=== PATIENT | female | born 1955 | race Caucasian/White ===

== ENCOUNTER 2016-09-12 17:57 | Emergency (ER) | payer MEDICARE, OTHER ==
--- NOTE | 2016-09-12 18:30 | Emergency Department Record ---
History of Present Illness - General Chief complaint: Weakness Stated complaint: BP HIGH Time Seen by Provider: 09/12/16 18:24 Source: Patient Mode of Arrival: Ambulatory - History of Present Illness Initial comments: The patient states that she had her GB removed 1 week ago in [place] on . She states she did not have a stress test or heart workup prior to her surgery other than an EKG and blood work which she was told was normal. It was found that her blood pressure was high and so she was started on amylodipine , the first pill of which she took just prior to arrival here. Around 12 noon today after putting wood into the wood stove, she developed pain between her shoulder blades in the back, which comes through to the front as an "ache." These symptoms are associated with lightheadedness, a feeling of impending fainting, nausea, ad slight diaphoresis. She has had 3 of these episodes since her surgery, and two of these episodes PRIOR to her surgery. She denies AK, PE, CVA, DM, htn, chol elevation, or FH of AK. Her mother lived into her 90's and had CHF. Sister has some unknown heart problem. She has never been a smoker. MD Complaint: Generalized weakness Onset/Timin -: Hour(s) Location: Other Severity: Moderate Severity scale (1-10): 5 Quality: Aching Consistency: Constant Improves with: None Worsens with: Movement Associated Symptoms: Denies other symptoms - [place] Coma Scale Eye Response: (4) Open spontaneously Motor Response: (6) Obeys commands Verbal Response: (5) Oriented [place] Total: 15 - Related Data Home Medications Medication Instructions Recorded Confirmed Last Taken Naproxen [Naprosyn] 500 mg PO Q12H PRN 07/07/16 07/07/16 Unknown Albuterol Sulfate [Proair Hfa] 1 - 2 puff IH .EVERY 4-6 HOURS PRN 07/08/1607/08 Unknown Aspirin/Acetaminophen/Caffeine 1 each PO PRN 07/08/16 Unknown [Excedrin Migraine Caplet] Amlodipine Besylate 5 mg PO 09/12/16 Unknown Previous Rx's Medication Instructions Recorded Fluticasone Propionate [Flonase] 0.27 gm NA DAILY #1 btl 07/09/16 Allergies Allergy/AdvReac Type Severity Reaction Status Date / Time hydromorphone Allergy Unknown RAPID Verified 09/12/16 18:24 HEART RATE levofloxacin Allergy Unknown HIVES Verified 09/12/16 18:24 Sulfa (Sulfonamide Allergy Unknown RAPID Verified 09/12/16 18:24 Antibiotics) HEART RATE Iodinated Contrast Media - Allergy RASH Verified 09/12/16 18:24 Oral and iodine Allergy RASH Verified 09/12/16 18:24 Travel Screening - Travel/Exposure Within Last 30 Days Have you traveled within the last 30 days?: No - Travel/Exposure Within Last Year Have you traveled outside the [place] in the last year?: No - Travel Symptoms Symptom Screening: None Review of Systems Reviewed: No additional complaints except as noted below Constitutional: Reports: As per HPI. Denies: Chills, Fever, Malaise, Night sweats, Weakness, Weight change Eyes: Reports: As per HPI. Denies: Eye discharge, Eye pain, Photophobia, Vision change ENT: Reports: As per HPI. Denies: Congestion, Dental pain, Ear pain, Epistaxis , Hearing loss, Throat pain Respiratory: Reports: As per HPI. Denies: Cough, Dyspnea, Hemoptysis, Stridor, Wheezes Cardiovascular: Reports: As per HPI. Denies: Arrhythmia, Chest pain, Dyspnea on exertion, Edema, Murmurs, Orthopnea, Palpitations, Paroxysmal nocturnal dyspnea, Rheumatic Fever, Syncope Endocrine: Reports: As per HPI. Denies: Fatigue, Heat or cold intolerance, Polydipsia, Polyuria Gastrointestinal: Reports: As per HPI. Denies: Abdominal pain, Constipation, Diarrhea, Hematemesis, Hematochezia, Melena, Nausea, Vomiting Genitourinary: Reports: As per HPI. Denies: Abnormal menses, Discharge, Dyspareunia, Dysuria, Frequency, Hematuria, Incontinence, Retention, Urgency Musculoskeletal: Reports: As per HPI. Denies: Arthralgia, Back pain, Gout, Joint swelling, Myalgia, Neck pain Skin: Reports: As per HPI. Denies: Bruising, Change in color, Change in hair/ nails, Lesions, Pruritus, Rash Neurological: Reports: As per HPI. Denies: Abnormal gait, Confusion, Headache, Numbness, Paresthesias, Seizure, Tingling, Tremors, Vertigo, Weakness Psychiatric: Reports: As per HPI. Denies: Anxiety, Auditory hallucinations, Depression, Homicidal thoughts, Suicidal thoughts, Visual hallucinations Hematological/Lymphatic: Reports: As per HPI. Denies: Anemia, Blood Clots, Easy bleeding, Easy bruising, Swollen glands Past Medical History - SOCIAL HISTORY Smoking Status: Never smoker Alcohol Use: None Drug Use: None - RESPIRATORY Hx Respiratory Disorders: Yes Hx Asthma: Yes Hx Bronchitis: Yes - CARDIOVASCULAR Hx Cardio Disorders: No - NEURO Hx Neuro Disorders: Yes Hx Headaches: Yes (migraines) Comment:: migraines - GI Hx GI Disorders: Yes Hx Celiac Disease: Yes Hx Reflux: Yes - Hx Genitourinary Disorders: No - ENDOCRINE Hx Endocrine Disorders: No - MUSCULOSKELETAL Hx Musculoskeletal Disorders: Yes Hx Arthritis: Yes (rheumatoid) Hx Gout: Yes Comment:: Polymyalgia Rheumatica - PSYCH Hx Psych Problems: No - HEMATOLOGY/ONCOLOGY Hx Hematology/Oncology Disorders: No Family Medical History Any Significant Family History?: Yes Hx Alcohol Use: Father Hx Cancer: Father Hx Dementia: Mother Hx Heart Disease: Mother, Brother/Sister Hx HTN: Brother/Sister Hx Stroke: Mother Physical Exam - General General Appearance: Alert, Oriented x3, Cooperative, No acute distress - Head Head exam: Normal inspection - Eye Eye exam: Normal appearance, PERRL Pupils: Normal accommodation - ENT ENT exam: Normal exam, Mucous membranes moist, Normal external ear exam, Normal orophraynx, TM's normal bilaterally Ear exam: Normal external inspection. negative: External canal tenderness Nasal Exam: Normal inspection. negative: Discharge, Sinus tenderness Mouth exam: Normal external inspection, Tongue normal Teeth exam: Normal inspection. negative: Dental caries Throat exam: Normal inspection. negative: Tonsillar erythema, Tonsillar exudate - Neck Neck exam: Normal inspection, Full ROM. negative: Tenderness - Respiratory Respiratory exam: Normal lung sounds bilaterally, Other (no skin lesions.). negative: Chest wall tenderness, Respiratory distress - Cardiovascular Cardiovascular Exam: Regular rate, Normal rhythm, Normal heart sounds - GI/Abdominal GI/Abdominal exam: Soft, Normal bowel sounds, Other (incisions clean and dry and healing well). negative: Tenderness - Rectal Rectal exam: Deferred - exam: Deferred - Extremities Extremities exam: Normal inspection, Full ROM, Normal capillary refill. negative: Calf tenderness, Pedal edema, Tenderness - Back Back exam: Reports: Normal inspection, Full ROM. Denies: Muscle spasm, Rash noted, Tenderness - Neurological Neurological exam: Alert, Normal gait, Oriented X3, Reflexes normal - Psychiatric Psychiatric exam: Normal affect, Normal mood - Skin Skin exam: Dry, Intact, Normal color, Warm Course Vital Signs 09/12/16 18:15 Temperature 98.3 F Pulse Rate 71 Respiratory 16 Rate Blood Pressure 149/80 Pulse Ox 100 - Reevaluation(s) Reevaluation #1: Patient is comfortable currently and desires no medication. Her results were discussed with the patient and her . With her elevated D dimer and recent surgery, a transfer is required for possible VQ scan/other studies to evaluate possible PE/aorta problem. Her CXR has a normal mediastinum width. Her BP's both arms are nearly identical. She also has not had a cardiac workup. Patient is in agreement with [facility] for her transfer. 09/12/16 21:12 09/12/16 21:43 Reevaluation #2: spoke with Int. Medicine at [facility] Dr. Mendoza who requests patient get her studies in the EDept at [facility] and he will admit her if indicated after her workup is finished. Patient understands and agrees. Spoke with Dr. Sosa in Emergency department who accepts patient in transfer. 09/12/16 21:32 Reevaluation #3: Patient understands transfer to EDept. and agrees. She has a very mild low grade discomfort between her shoulder blades. Morphine ordered. 09/12/16 21:39 Medical Decision Making - Management Options MDM Management: Additional Work-up Planned (e.g. ADM/Transfer/OP Study) ( Transfer to [facility] for further studies not available here.) - Data Complexity MDM Data: Labs Ordered and/or Reviewed, X-Ray Ordered and/or Reviewed (CXR two view: Negative per radiologist.), EKG Ordered and/or Reviewed - Lab Data Result diagrams: 09/12/16 18:38 09/12/16 18:38 - EKG Data -: EKG Interpreted by Me EKG: No Acute Changes, Unchanged From Previous Disposition Disposition: Transfer Clinical Impression: Elevated d-dimer Chest pain Qualifiers: Chest pain type: unspecified Qualified Code(s): R07.9 - Chest pain, unspecified Disposition: Acute Care Hospital Transfer Transfer To: [facility] emergency department Reason For Transfer: studies not available here; elevated D dimer, contrast allergy Accepting Physician: Dr. Sosa Time Discussed w/Accepting Physician: 21:41 Condition: (1) Good Forms: Patient Portal Access
[2016-09-12 18:45] LABS: BASO % 1.3 % (0-6); EOS % 5.3 % (0-6); GRAN % 46.6 % (47-80); HEMOGLOBIN 12.8 gm/dl (11.6-16.0); LYMPH % 34.9 % (16-45); MEAN CELL VOLUME 90.5 fl (81-97); MEAN CORPUSCULAR HEMOGLOBIN 28.3 pg (27-33); MEAN CORPUSCULAR HGB CONC 31.2 g/dl (32-36); MEAN PLATELET VOLUME 10.3 fl (7.4-10.4); MONO % 11.9 % (0-9); PLATELET COUNT 266 K/uL (130-400); RED BLOOD COUNT 4.53 M/uL (3.80-5.40); RED CELL DISTRIBUTION WIDTH 13.2 % (11.5-14.5); WHITE BLOOD COUNT W/O DIFF 7.2 K/uL (4.2-12.2)
[2016-09-12 18:57] LABS: BLOOD UREA NITROGEN 15 mg/dL (7-17); CREATINE PHOSPHOKINASE 36 U/L (30-135); CREATININE 0.8 mg/dL (0.52-1.04); EST GLOMERULAR FILTRATION RATE > 60 ml/min; GLUCOSE,RANDOM 97 mg/dL (70-110)
[2016-09-12 19:01] LABS: INR 1.02; PARTIAL THROMBOPLASTIN TIME 25.7 SECONDS (24.5-39.1); PROTHROMBIN TIME (PATIENT) 11.5 SECONDS (9.5-12.1)
[2016-09-12 19:03] LABS: D-DIMER 2.24 mg/L FEU (0-0.59)
[2016-09-12 19:09] LABS: CKMB 0.4 ug/L (0-6)
[2016-09-12 19:10] LABS: TROPONIN I < 0.012 ng/mL (0.00-0.034)
[2016-09-12] MEDS ORDERED: ASPIRIN 325 MG TAB ENTERIC-COATED PO ONE (19:13)
[2016-09-12] MEDS ORDERED: AL HYDROX/MAG HYDROX 30ML UD PO ONE (19:14)
[2016-09-12] MEDS ORDERED: MORPHINE SULFATE 5 MG/ML PFS IVP ONE (21:38)
[2016-09-12] MEDS ORDERED: ONDANSETRON HCL IV 4 MG/2 ML VIAL IVP ONE (21:59)
== END 2016-09-12 22:21 | disposition short-term general hospital (02) ==
LOC: ER 17:57
DX: R07.9 Chest pain, unspecified (principal); R53.1 Weakness; R79.89 Other specified abnormal findings of blood chemistry
CPT/HCPCS: 99285 ×2; 96374; 96375; 82550; 85025; 85730; 85610; 82553; 84484; 80048; 85379; 71020; 93005; 93010; J2405; J2270

== ENCOUNTER 2016-12-29 02:19 | Emergency (ER) | payer MEDICARE, OTHER ==
[2016-12-29] MEDS ORDERED: ASPIRIN 81 MG CHEWABLE TABLET PO ONE (02:46)
[2016-12-29] MEDS ORDERED: ONDANSETRON HCL IV 4 MG/2 ML VIAL IVP ONE (02:46)
[2016-12-29] MEDS ORDERED: NITROGLYCERIN 0.4MG SL TABLET #25 BTL SL ONE (02:47)
--- NOTE | 2016-12-29 02:54 | Emergency Department Record ---
History of Present Illness - General Chief complaint: General Stated complaint: HIGH BP Time Seen by Provider: 12/29/16 02:34 Source: Patient Mode of Arrival: Ambulatory - History of Present Illness Initial comments: The patient states that she was outside in the yard doing work all day. Around 10 p.m. she began feeling "sluggish," was unable to go to sleep, and felt "hyper " and nauseated. She knew that her BP was elevated. Around 1 a.m. her left jaw and top of her left shoulder began aching and she became slightly SOB without diaphoresis. When questioned she admits her chest feels tight, "like a band across the front," although she does have this with her asthma, "this feels different." She tried an erica-seltzer which didn't help so she came here to be checked. She has htn, no DM, chol elevation, or NH/PE history. She is a nonsmoker. She states her mother has CHF and her sister has some heart problem also. She has a history of elevated liver enzymes, elevated D Dimer, htn, atypical chest pain, and "blood pressure spikes." She has been on 5 mg amlodipine which she takes in the mornings for about the past 6 months. - Related Data Home Medications Medication Instructions Recorded Confirmed Last Taken Naproxen [Naprosyn] 500 mg PO Q12H PRN 07/07/16 07/07/16 Unknown Albuterol Sulfate [Proair Hfa] 1 - 2 puff IH .EVERY 4-6 HOURS PRN 07/08/1607/08 Unknown Aspirin/Acetaminophen/Caffeine 1 each PO PRN 07/08/16 Unknown [Excedrin Migraine Caplet] Amlodipine Besylate 10 mg PO DAILY 09/12/16 12/29/16 12/28/16 Previous Rx's Medication Instructions Recorded Fluticasone Propionate [Flonase] 0.27 gm NA DAILY #1 btl 07/09/16 Allergies Allergy/AdvReac Type Severity Reaction Status Date / Time hydromorphone Allergy Unknown RAPID Verified 09/12/16 18:24 HEART RATE levofloxacin Allergy Unknown HIVES Verified 09/12/16 18:24 Sulfa (Sulfonamide Allergy Unknown RAPID Verified 09/12/16 18:24 Antibiotics) HEART RATE Iodinated Contrast- Oral and Allergy RASH Verified 09/12/16 18:24 IV Dye [Iodinated Contrast Media - Oral and] iodine Allergy RASH Verified 09/12/16 18:24 Travel Screening - Travel/Exposure Within Last 30 Days Have you traveled within the last 30 days?: No - Travel Symptoms Symptom Screening: None Review of Systems Reviewed: No additional complaints except as noted below Constitutional: Reports: As per HPI. Denies: Chills, Fever, Malaise, Night sweats, Weakness, Weight change Eyes: Reports: As per HPI. Denies: Eye discharge, Eye pain, Photophobia, Vision change ENT: Reports: As per HPI. Denies: Congestion, Dental pain, Ear pain, Epistaxis , Hearing loss, Throat pain Respiratory: Reports: As per HPI. Denies: Cough, Dyspnea, Hemoptysis, Stridor, Wheezes Cardiovascular: Reports: As per HPI. Denies: Arrhythmia, Chest pain, Dyspnea on exertion, Edema, Murmurs, Orthopnea, Palpitations, Paroxysmal nocturnal dyspnea, Rheumatic Fever, Syncope Endocrine: Reports: As per HPI. Denies: Fatigue, Heat or cold intolerance, Polydipsia, Polyuria Gastrointestinal: Reports: As per HPI. Denies: Abdominal pain, Constipation, Diarrhea, Hematemesis, Hematochezia, Melena, Nausea, Vomiting Genitourinary: Reports: As per HPI. Denies: Abnormal menses, Discharge, Dyspareunia, Dysuria, Frequency, Hematuria, Incontinence, Retention, Urgency Musculoskeletal: Reports: As per HPI. Denies: Arthralgia, Back pain, Gout, Joint swelling, Myalgia, Neck pain Skin: Reports: As per HPI. Denies: Bruising, Change in color, Change in hair/ nails, Lesions, Pruritus, Rash Neurological: Reports: As per HPI. Denies: Abnormal gait, Confusion, Headache, Numbness, Paresthesias, Seizure, Tingling, Tremors, Vertigo, Weakness Psychiatric: Reports: As per HPI. Denies: Anxiety, Auditory hallucinations, Depression, Homicidal thoughts, Suicidal thoughts, Visual hallucinations Hematological/Lymphatic: Reports: As per HPI. Denies: Anemia, Blood Clots, Easy bleeding, Easy bruising, Swollen glands Past Medical History - SOCIAL HISTORY Smoking Status: Never smoker - RESPIRATORY Hx Respiratory Disorders: Yes Hx Asthma: Yes Hx Bronchitis: Yes - CARDIOVASCULAR Hx Cardio Disorders: Yes Hx Hypertension: Yes - NEURO Hx Neuro Disorders: Yes Hx Headaches: Yes (migraines) Comment:: migraines - GI Hx GI Disorders: Yes Hx Celiac Disease: Yes Hx Reflux: Yes - Hx Genitourinary Disorders: No - ENDOCRINE Hx Endocrine Disorders: No - MUSCULOSKELETAL Hx Musculoskeletal Disorders: Yes Hx Arthritis: Yes (rheumatoid) Hx Gout: Yes Comment:: Polymyalgia Rheumatica - PSYCH Hx Psych Problems: No - HEMATOLOGY/ONCOLOGY Hx Hematology/Oncology Disorders: No Family Medical History Any Significant Family History?: Yes Hx Alcohol Use: Father Hx Cancer: Father Hx Dementia: Mother Hx Heart Disease: Mother, Brother/Sister Hx HTN: Brother/Sister Hx Stroke: Mother Physical Exam - General General Appearance: Alert, Oriented x3, Cooperative, Mild distress, Other (obese , sunburned reddened face) - Head Head exam: Normal inspection - Eye Eye exam: Normal appearance, PERRL Pupils: Normal accommodation - ENT ENT exam: Normal exam, Mucous membranes moist, Normal external ear exam, Normal orophraynx, TM's normal bilaterally Ear exam: Normal external inspection. negative: External canal tenderness Nasal Exam: Normal inspection. negative: Discharge, Sinus tenderness Mouth exam: Normal external inspection, Tongue normal Teeth exam: Normal inspection. negative: Dental caries Throat exam: Normal inspection. negative: Tonsillar erythema, Tonsillar exudate - Neck Neck exam: Normal inspection, Full ROM. negative: Tenderness - Respiratory Respiratory exam: Normal lung sounds bilaterally. negative: Respiratory distress - Cardiovascular Cardiovascular Exam: Regular rate, Normal rhythm, Normal heart sounds - GI/Abdominal GI/Abdominal exam: Soft, Normal bowel sounds, Tenderness (epigastric tenderness on palpation) - Rectal Rectal exam: Deferred - exam: Deferred - Extremities Extremities exam: Normal inspection, Full ROM, Normal capillary refill, Pedal edema (trace bilateral), Tenderness (bilateral old surgical scars from total knee replacements; tender left proximal khanna at distal surgical scar). negative : Calf tenderness - Back Back exam: Reports: Normal inspection, Full ROM. Denies: Muscle spasm, Rash noted, Tenderness - Neurological Neurological exam: Alert, Normal gait, Oriented X3, Reflexes normal - Psychiatric Psychiatric exam: Anxious (mildly), Normal affect, Normal mood - Skin Skin exam: Dry, Intact, Normal color, Warm Course Vital Signs 12/29/16 02:33 Temperature 98.7 F Pulse Rate [ 83 Bilateral] Respiratory 18 Rate Blood Pressure 162/81 [Left Arm] Pulse Ox 99 - Reevaluation(s) Reevaluation #1: Her jaw/shoulder pain has improved from an 8 to a 6/10; nausea has improved; repeat BP 136/63. 12/29/16 03:05 Reevaluation #2: Her jaw discomfort is completely gone. Xrays ordered. She hurt her left knee about a week ago and requests an xray as it still bothers her. She has had bilater knee replacements. 12/29/16 03:11 Reevaluation #3: Dw Dr. Lafleur emergency attending at [facility] who accepts patient in transfer for a VQ scan. Patient and are aware and are in agreement. 12/29/16 04:01 Reevaluation #4: Patient remains without symptoms and is feeling much better. Awaiting transfer. 12/29/16 04:10 Medical Decision Making - Management Options MDM Management: Additional Work-up Planned (e.g. ADM/Transfer/OP Study) ( Transfer to [facility] EDept for VQ scan) - Data Complexity MDM Data: Labs Ordered and/or Reviewed, X-Ray Ordered and/or Reviewed (CXR Neg per ED physician. Left knee: Neg for acute abnormality per ED physician.), EKG Ordered and/or Reviewed - Lab Data Result diagrams: 12/29/16 02:25 12/29/16 02:25 - EKG Data -: EKG Interpreted by Me EKG: No Acute Changes, Unchanged From Previous (prior of 3 unchanged) Disposition Disposition: Transfer Clinical Impression: Chest pain radiating to jaw, Elevated d-dimer, Elevated TSH, Liver enzyme elevation High blood pressure Qualifiers: Hypertension type: essential hypertension Qualified Code(s): I10 - Essential ( primary) hypertension Disposition: Acute Care Hospital Transfer Transfer To: [facility] Emergency Department Reason For Transfer: VQ scan/ iodine allergy Accepting Physician: Dr. Lafleur Time Discussed w/Accepting Physician: 04:09 Condition: (1) Good Forms: Patient Portal Access
[2016-12-29 02:55] LABS: BASO % 0.8 % (0-6); EOS % 2.4 % (0-6); GRAN % 47.8 % (47-80); HEMATOCRIT 38.2 % (35.0-47.0); HEMOGLOBIN 12.7 gm/dl (11.6-16.0); LYMPH % 36.7 % (16-45); MEAN CELL VOLUME 91.2 fl (81-97); MEAN CORPUSCULAR HEMOGLOBIN 30.3 pg (27-33); MEAN CORPUSCULAR HGB CONC 33.2 g/dl (32-36); MONO % 12.3 % (0-9); PLATELET COUNT 268 K/uL (130-400); RED BLOOD COUNT 4.19 M/uL (3.80-5.40); RED CELL DISTRIBUTION WIDTH 13.6 % (11.5-14.5); WHITE BLOOD COUNT W/O DIFF 7.8 K/uL (4.2-12.2)
[2016-12-29 03:06] LABS: ALBUMIN 3.7 gm/dL (3.5-5.0); BILIRUBIN,TOTAL 0.95 mg/dL (0.2-1.3); TOTAL PROTEIN 10.8 gm/dL (6.3-8.2)
[2016-12-29 03:07] LABS: ANION GAP 4.3 (7-16); BLOOD UREA NITROGEN 20 mg/dL (7-17); CARBON DIOXIDE 27.7 mmol/L (22-30); CREATININE 0.8 mg/dL (0.52-1.04); EST GLOMERULAR FILTRATION RATE > 60 ml/min; GLUCOSE,RANDOM 98 mg/dL (70-110)
[2016-12-29 03:10] LABS: INR 1.04; PARTIAL THROMBOPLASTIN TIME 26.6 SECONDS (24.5-39.1); PROTHROMBIN TIME (PATIENT) 11.7 SECONDS (9.5-12.1)
[2016-12-29 03:11] LABS: D-DIMER 0.95 mg/L FEU (0-0.59)
[2016-12-29 03:19] LABS: CKMB 0.9 ug/L (0-6)
[2016-12-29 03:22] LABS: TROPONIN I < 0.012 ng/mL (0.00-0.034)
[2016-12-29 03:37] LABS: THYROID STIMULATING HORMONE 7.05 uIU/ml (0.465-4.68)
--- NOTE | 2016-12-29 13:40 | RADIOLOGY REPORT ---
EXAM: CHEST, TWO VIEWS HISTORY: NAUSEA AND SHORTNESS OF BREATH. LEFT JAW PAIN. HYPERTENSION. TECHNIQUE: Upright PA and lateral views of the chest were obtained. Comparison: Two view chest radiographic examination dated 09/12/16. FINDINGS: The cardiomediastinal silhouette is normal in size and configuration. The pulmonary vasculature is nondilated. The lungs and pleural spaces remain clear. Post surgical changes are again noted within the right shoulder girdle. There are mild degenerative changes of the visualized spine and each shoulder girdle. IMPRESSION: NO RADIOGRAPHIC EVIDENCE OF ACUTE CARDIOPULMONARY DISEASE WITHOUT CHANGE SINCE . JOB NUMBER: [id number] [facility]
--- NOTE | 2016-12-29 13:47 | RADIOLOGY REPORT ---
EXAM: LEFT KNEE, FOUR VIEWS HISTORY: PAIN IN PROXIMAL TIBIA AND FIBULA ONE WEEK POST FALL. TECHNIQUE: AP, oblique, lateral, and sunrise views of the left knee were obtained. Comparison: None. FINDINGS: There are changes of total knee arthroplasty with the metallic prosthetic components appearing well seated. No complicating fracture or dislocation is seen. No definite joint effusion. There is possible mild prepatellar soft tissue swelling. On the lateral view there is a well corticated ossific structure projecting near the posterior joint line measuring 5 mm. A loose body would be difficult to exclude. An additional ossific density posteriorly though more superiorly is likely a fabella. IMPRESSION: NO ACUTE FRACTURE NOR DISLOCATION. POST LEFT TOTAL KNEE ARTHROPLASTY CHANGES WITHOUT COMPLICATING FRACTURE OR DISLOCATION. POSSIBLE SMALL LOOSE BODY NEAR THE POSTERIOR JOINT LINE. JOB [facility]BER: [id number] [facility]
== END 2016-12-29 04:49 | disposition short-term general hospital (02) ==
LOC: ER 02:19
DX: R07.89 Other chest pain (principal); R79.89 Other specified abnormal findings of blood chemistry; R74.8 Abnormal levels of other serum enzymes; I10 Essential (primary) hypertension; R11.0 Nausea; E07.89 Other specified disorders of thyroid; R10.13 Epigastric pain; R06.02 Shortness of breath; M25.562 Pain in left knee
CPT/HCPCS: 99285 ×2; 96374; 85025; 85730; 85610; 80076; 82553; 84484; 80048; 84443; 85379; 83880; 71020; 73564; 93005; 93010; J2405

== ENCOUNTER 2017-05-01 10:16 | Emergency (ER) | payer MEDICARE, OTHER ==
--- NOTE | 2017-05-01 10:44 | Emergency Department Record ---
History of Present Illness - General Chief complaint: Rash Stated complaint: RASH Time Seen by Provider: 05/01/17 10:31 Source: Patient Mode of Arrival: Ambulatory Limitations: No limitations - History of Present Illness Initial comments: The patient is here due to a very itching rash over her arms and trunk mainly for a week. She did see her PCP a week ago and was given a steroid shot but the rash is not better. She denies any new medicines, foods, skin products, pets or any poison jon exposure. The patient also denies any JOHN, fever, chills, or swelling but has had a mild ST today. complaint: Rash Onset/Timin -: Week(s) Hx Tetanus Toxoid Vaccination: Yes Year of Tetanus Vaccination: 2009 Location: Generalized Severity: Mild Severity scale (1-10): 5 Consistency: Constant Improves with: None Worsens with: None Associated symptoms: Itching - Related Data Home Medications Medication Instructions Recorded Confirmed Last Taken Cetirizine HCl [Zyrtec] 10 mg PO DAILY 05/01/17 05/01/17 1 Day Ago ~04/30/17 Previous Rx's Medication Instructions Recorded Fluticasone Propionate [Flonase] 0.27 gm NA DAILY #1 btl 07/09/16 Methylprednisolone [Medrol Dose 4 mg PO DAILY #1 tab.ds.pk 05/01/17 Pack] Allergies Allergy/AdvReac Type Severity Reaction Status Date / Time hydromorphone Allergy Unknown RAPID Verified 05/01/17 10:29 HEART RATE levofloxacin Allergy Unknown HIVES Verified 05/01/17 10:29 Sulfa (Sulfonamide Allergy Unknown RAPID Verified 05/01/17 10:29 Antibiotics) HEART RATE Iodinated Contrast- Oral and Allergy RASH Verified 05/01/17 10:29 IV Dye [Iodinated Contrast Media - Oral and] iodine Allergy RASH Verified 05/01/17 10:29 Travel Screening - Travel/Exposure Within Last 30 Days Have you traveled within the last 30 days?: No - Travel/Exposure Within Last Year Have you traveled outside the [place] in the last year?: No - Additonal Travel Details Have you been exposed to anyone with a communicable illness?: No - Travel Symptoms Symptom Screening: None Review of Systems Constitutional: Denies: Chills, Fever Eyes: Denies: Eye discharge ENT: Denies: Congestion Respiratory: Denies: Cough, Dyspnea Past Medical History - SOCIAL HISTORY Smoking Status: Never smoker Alcohol Use: None Drug Use: None - RESPIRATORY Hx Respiratory Disorders: Yes Hx Asthma: Yes Hx Bronchitis: Yes - CARDIOVASCULAR Hx Cardio Disorders: Yes Hx Hypertension: Yes - NEURO Hx Neuro Disorders: Yes Hx Headaches: Yes (migraines) Comment:: migraines - GI Hx GI Disorders: Yes Hx Celiac Disease: Yes Hx Reflux: Yes Hx Hiatal Hernia: Yes (scope in June) - Hx Genitourinary Disorders: No - ENDOCRINE Hx Endocrine Disorders: No - MUSCULOSKELETAL Hx Musculoskeletal Disorders: Yes Hx Arthritis: Yes (rheumatoid) Hx Gout: Yes Comment:: Polymyalgia Rheumatica - PSYCH Hx Psych Problems: No - HEMATOLOGY/ONCOLOGY Hx Hematology/Oncology Disorders: No Family Medical History Any Significant Family History?: Yes Hx Alcohol Use: Father Hx Cancer: Father Hx Dementia: Mother Hx Heart Disease: Mother, Brother/Sister Hx HTN: Brother/Sister Hx Stroke: Mother Physical Exam - General General Appearance: Alert, Oriented x3, Cooperative, No acute distress - Head Head exam: Atraumatic, Normocephalic, Normal inspection - Eye Eye exam: Normal appearance, PERRL - ENT Throat exam: Normal inspection. negative: Tonsillar erythema, Tonsillar exudate - Neck Neck exam: Normal inspection, Full ROM. negative: Lymphadenopathy, Meningismus , Tenderness - Respiratory Respiratory exam: Normal lung sounds bilaterally. negative: Respiratory distress - Cardiovascular Cardiovascular Exam: Regular rate, Normal rhythm, Normal heart sounds - GI/Abdominal GI/Abdominal exam: Soft, Normal bowel sounds. negative: Tenderness - Extremities Extremities exam: Normal inspection, Full ROM, Normal capillary refill. negative: Tenderness - Skin Skin exam: Rash (There is a scattered faint blanching macular papular erythematous rash over the trunk, and arms mainly with no involvement of the palms, face or mouth.) Course Vital Signs 05/01/17 10:21 Temperature 98.0 F Pulse Rate 69 Respiratory 18 Rate Blood Pressure 142/76 Pulse Ox 99 - Reevaluation(s) Reevaluation #1: I explained to the patient that we will treat the rash with an oral steroid. She is to continue the Zyrtec and see her PCP next week as planned. 05/01/17 10:42 Disposition Disposition: Discharge Clinical Impression: Skin rash Disposition: Home, Self-Care Condition: (2) Stable Instructions: Acute Rash (ED) Additional Instructions: Please use the Medrol dose pack as directed and continue the Zyrtec. Please see your PCP next week as planned. Return to the ER for any increased rash, or any swelling, pain, fever, or trouble breathing. Prescriptions: Methylprednisolone [Medrol Dose Pack] 4 mg PO DAILY #1 tab.ds.pk Forms: Patient Portal Access Time of Disposition: 10:45 Quality - Quality Measures Quality Measures: N/A - Blood Pressure Screening View Details: Yes Does Patient Have Any of the Following: No Blood Pressure Classification: Hypertensive Reading Systolic Measurement: 142 Diastolic Measurement: 76 Screening for High Blood Pressure: < Normal BP, F/U Not Required > [G8783]
== END 2017-05-01 10:58 | disposition home or self-care (01) ==
LOC: ER 10:16
DX: R21 Rash and other nonspecific skin eruption (principal)
CPT/HCPCS: 99282

== ENCOUNTER 2017-08-08 15:30 | Emergency (ER) | payer MEDICARE, BC ==
--- NOTE | 2017-08-08 16:44 | Emergency Department Record ---
History of Present Illness - General Chief complaint: Flu Like Symptoms Stated complaint: FLU LIKE SYMPTOMS Time Seen by Provider: 08/08/17 16:36 Source: Patient, RN notes reviewed Mode of Arrival: Ambulatory - History of Present Illness Initial comments: cough congestion and bodyaches and diarrhea and vomiting Onset/Timin -: Days(s) Location: Generalized Severity: Mild Associated Symptoms: Fever/chills, Headaches, Loss of appetite, Nausea/vomiting - [place] Coma Scale Eye Response: (4) Open spontaneously Motor Response: (6) Obeys commands Verbal Response: (5) Oriented [place] Total: 15 - Related Data Previous Rx's Medication Instructions Recorded Fluticasone Propionate [Flonase] 0.27 gm NA DAILY #1 btl 07/09/16 Ondansetron HCl [Zofran] 4 mg PO Q6HR #10 tablet 08/08/17 Oseltamivir Phosphate [Tamiflu] 75 mg PO BID #10 capsule 08/08/17 Allergies Allergy/AdvReac Type Severity Reaction Status Date / Time hydromorphone Allergy Unknown RAPID Verified 08/08/17 15:55 HEART RATE levofloxacin Allergy Unknown HIVES Verified 08/08/17 15:55 Sulfa (Sulfonamide Allergy Unknown RAPID Verified 08/08/17 15:55 Antibiotics) HEART RATE Iodinated Contrast- Oral and Allergy RASH Verified 08/08/17 15:55 IV Dye [Iodinated Contrast Media - Oral and] iodine Allergy RASH Verified 08/08/17 15:55 Travel Screening - Travel/Exposure Within Last 30 Days Have you traveled within the last 30 days?: No - Travel/Exposure Within Last Year Have you traveled outside the [place] in the last year?: No - Additonal Travel Details Have you been exposed to anyone with a communicable illness?: No Review of Systems Reviewed: No additional complaints except as noted below Constitutional: Reports: As per HPI. Denies: Chills, Fever, Malaise, Night sweats, Weakness, Weight change Eyes: Reports: As per HPI. Denies: Eye discharge, Eye pain, Photophobia, Vision change ENT: Reports: As per HPI, Congestion. Denies: Dental pain, Ear pain, Epistaxis , Hearing loss, Throat pain Respiratory: Reports: As per HPI, Cough. Denies: Dyspnea, Hemoptysis, Stridor, Wheezes Cardiovascular: Reports: As per HPI. Denies: Arrhythmia, Chest pain, Dyspnea on exertion, Edema, Murmurs, Orthopnea, Palpitations, Paroxysmal nocturnal dyspnea, Rheumatic Fever, Syncope Endocrine: Reports: As per HPI. Denies: Fatigue, Heat or cold intolerance, Polydipsia, Polyuria Gastrointestinal: Reports: As per HPI, Diarrhea, Vomiting. Denies: Abdominal pain, Constipation, Hematemesis, Hematochezia, Melena, Nausea Genitourinary: Reports: As per HPI. Denies: Abnormal menses, Discharge, Dyspareunia, Dysuria, Frequency, Hematuria, Incontinence, Retention, Urgency Musculoskeletal: Reports: As per HPI. Denies: Arthralgia, Back pain, Gout, Joint swelling, Myalgia, Neck pain Skin: Reports: As per HPI. Denies: Bruising, Change in color, Change in hair/ nails, Lesions, Pruritus, Rash Neurological: Reports: As per HPI. Denies: Abnormal gait, Confusion, Headache, Numbness, Paresthesias, Seizure, Tingling, Tremors, Vertigo, Weakness Psychiatric: Reports: As per HPI. Denies: Anxiety, Auditory hallucinations, Depression, Homicidal thoughts, Suicidal thoughts, Visual hallucinations Hematological/Lymphatic: Reports: As per HPI. Denies: Anemia, Blood Clots, Easy bleeding, Easy bruising, Swollen glands Past Medical History - SOCIAL HISTORY Smoking Status: Never smoker Alcohol Use: None Drug Use: None - RESPIRATORY Hx Respiratory Disorders: Yes Hx Asthma: Yes Hx Bronchitis: Yes - CARDIOVASCULAR Hx Cardio Disorders: Yes Hx Hypertension: Yes - NEURO Hx Neuro Disorders: Yes Hx Headaches: Yes (migraines) Comment:: migraines - GI Hx GI Disorders: Yes Hx Celiac Disease: Yes Hx Reflux: Yes Hx Hiatal Hernia: Yes (scope in June) - Hx Genitourinary Disorders: No - ENDOCRINE Hx Endocrine Disorders: No - MUSCULOSKELETAL Hx Musculoskeletal Disorders: Yes Hx Arthritis: Yes (rheumatoid) Hx Gout: Yes Comment:: Polymyalgia Rheumatica - PSYCH Hx Psych Problems: No - HEMATOLOGY/ONCOLOGY Hx Hematology/Oncology Disorders: No Family Medical History Any Significant Family History?: No Hx Alcohol Use: Father Hx Cancer: Father Hx Dementia: Mother Hx Heart Disease: Mother, Brother/Sister Hx HTN: Brother/Sister Hx Stroke: Mother Physical Exam - General General Appearance: Alert, Oriented x3, Cooperative, No acute distress - Head Head exam: Normal inspection - Eye Eye exam: Normal appearance, PERRL Pupils: Normal accommodation - ENT ENT exam: Normal exam, Mucous membranes moist, Normal external ear exam, Normal orophraynx, TM's normal bilaterally Ear exam: Normal external inspection. negative: External canal tenderness Nasal Exam: Normal inspection. negative: Discharge, Sinus tenderness Mouth exam: Normal external inspection, Tongue normal Teeth exam: Normal inspection. negative: Dental caries Throat exam: Normal inspection. negative: Tonsillar erythema, Tonsillar exudate - Neck Neck exam: Normal inspection, Full ROM. negative: Tenderness - Respiratory Respiratory exam: Normal lung sounds bilaterally. negative: Respiratory distress - Cardiovascular Cardiovascular Exam: Regular rate, Normal rhythm, Normal heart sounds - GI/Abdominal GI/Abdominal exam: Soft, Normal bowel sounds. negative: Tenderness - Rectal Rectal exam: Deferred - exam: Deferred - Extremities Extremities exam: Normal inspection, Full ROM, Normal capillary refill. negative: Tenderness - Back Back exam: Reports: Normal inspection, Full ROM. Denies: Muscle spasm, Rash noted, Tenderness - Neurological Neurological exam: Alert, Normal gait, Oriented X3, Reflexes normal - Psychiatric Psychiatric exam: Normal affect, Normal mood - Skin Skin exam: Dry, Intact, Normal color, Warm Course Vital Signs 08/08/17 15:44 Temperature 99.6 F Pulse Rate 96 H Respiratory 18 Rate Blood Pressure 148/82 Pulse Ox 97 Disposition Clinical Impression: Influenza Disposition: Home, Self-Care Condition: (1) Good Instructions: Influenza (ED) Additional Instructions: follow up with primary Prescriptions: Ondansetron HCl [Zofran] 4 mg PO Q6HR #10 tablet Oseltamivir Phosphate [Tamiflu] 75 mg PO BID #10 capsule Time of Disposition: 16:44 Quality - Quality Measures Quality Measures: N/A - Blood Pressure Screening Does Patient Have Any of the Following: No Blood Pressure Classification: Pre-Hypertensive BP Reading Systolic Measurement: 148 Diastolic Measurement: 82 Screening for High Blood Pressure: < Pre-Hypertensive BP, F/U Documented > [ G8950] Pre-Hypertensive Follow-up Interventions: Referral to alternative/primary care provider.
[2017-08-08] MEDS ORDERED: ONDANSETRON 4 MG ODT TABLET SL ONE (16:51)
== END 2017-08-08 16:58 | disposition home or self-care (01) ==
LOC: ER 15:30
DX: J10.1 Influenza due to other identified influenza virus with other respiratory manifestations (principal); R51 Headache; R11.2 Nausea with vomiting, unspecified; I10 Essential (primary) hypertension
CPT/HCPCS: 99282

== ENCOUNTER 2017-08-13 03:30 | Emergency (ER) | payer OTHER, MEDICARE ==
[2017-08-13] MEDS: 0.9 % SODIUM CHLORIDE 1,000 ML BAG IV ONE (03:58)
[2017-08-13] MEDS: ONDANSETRON HCL IV 4 MG/2 ML VIAL IVP ONE (03:58)
--- NOTE | 2017-08-13 03:58 | Emergency Department Record ---
History of Present Illness - General Chief Complaint: Shortness of breath Stated Complaint: JOHN Time Seen by Provider: 08/13/17 03:43 Source: Patient Mode of Arrival: Ambulatory Limitations: No limitations - History of Present Illness Initial Comments: The patient is here due to a 6 day hx of cough and congestion. She states she was in the ER 5 days ago and was told she had Influenza due to the one day hx of cough with vomiting and diarrhea. She felt dehydrated and the next day felt like she may have passed out while in bed. The patient did see her PCP the next day which was Thursday of this week and was told she had a viral pneumonia. Now she feels like her cough has worsened and her chest is hurting any time she coughs. She believes during a coughing fit last night she may have coughed up some blood because she tasted it in her mouth but had no blood in her sputum. The patient does feel mildly dehydrated and has been persistently nauseated but has not vomited recently. The loose stools have persisted and she has had 2 of them in the last 24 hours. MD Complaint: Cough Onset/Timin -: Days(s) Severity: Mild Severity scale (1-10): 8 Consistency: Getting worse Improves With: Nothing Worsens With: Nothing Associated Symptoms: Cough, Nausea/vomiting, Syncope - Related Data Previous Rx's Medication Instructions Recorded Fluticasone Propionate [Flonase] 0.27 gm NA DAILY #1 btl 07/09/16 Ondansetron HCl [Zofran] 4 mg PO Q6HR #10 tablet 08/08/17 Oseltamivir Phosphate [Tamiflu] 75 mg PO BID #10 capsule 08/08/17 Benzonatate [Tessalon Perle] 100 mg PO TID #20 capsule 08/13/17 Doxycycline Monohydrate [Mondoxyne 100 mg PO BID #14 capsule 08/13/17 Nl] Allergies Allergy/AdvReac Type Severity Reaction Status Date / Time hydromorphone Allergy Unknown RAPID Verified 08/08/17 15:55 HEART RATE levofloxacin Allergy Unknown HIVES Verified 08/08/17 15:55 Sulfa (Sulfonamide Allergy Unknown RAPID Verified 08/08/17 15:55 Antibiotics) HEART RATE Iodinated Contrast- Oral and Allergy RASH Verified 08/08/17 15:55 IV Dye [Iodinated Contrast Media - Oral and] iodine Allergy RASH Verified 08/08/17 15:55 Travel Screening - Travel/Exposure Within Last 30 Days Have you traveled within the last 30 days?: No - Travel/Exposure Within Last Year Have you traveled outside the [place] in the last year?: No - Additonal Travel Details Have you been exposed to anyone with a communicable illness?: No - Travel Symptoms Symptom Screening: None Review of Systems Constitutional: Reports: Malaise. Denies: Chills, Fever Eyes: Denies: Eye discharge ENT: Reports: Congestion Respiratory: Reports: Cough. Denies: Dyspnea, Hemoptysis Cardiovascular: Denies: Arrhythmia Endocrine: Reports: Fatigue Gastrointestinal: Reports: Diarrhea Genitourinary: Denies: Dysuria Musculoskeletal: Denies: Arthralgia Past Medical History - SOCIAL HISTORY Smoking Status: Never smoker Alcohol Use: None Drug Use: None - RESPIRATORY Hx Respiratory Disorders: Yes Hx Asthma: Yes Hx Bronchitis: Yes - CARDIOVASCULAR Hx Cardio Disorders: Yes Hx Hypertension: Yes - NEURO Hx Neuro Disorders: Yes Hx Headaches: Yes (migraines) Comment:: migraines - GI Hx GI Disorders: Yes Hx Celiac Disease: Yes Hx Reflux: Yes Hx Hiatal Hernia: Yes (scope in June scheduled) - Hx Genitourinary Disorders: No - ENDOCRINE Hx Endocrine Disorders: No - MUSCULOSKELETAL Hx Musculoskeletal Disorders: Yes Hx Arthritis: Yes (rheumatoid) Hx Gout: Yes Comment:: Polymyalgia Rheumatica - PSYCH Hx Psych Problems: No - HEMATOLOGY/ONCOLOGY Hx Hematology/Oncology Disorders: No Family Medical History Any Significant Family History?: Yes Hx Alcohol Use: Father Hx Cancer: Father Hx Dementia: Mother Hx Heart Disease: Mother, Brother/Sister Hx HTN: Brother/Sister Hx Stroke: Mother Physical Exam - General General Appearance: Alert, Oriented x3, Cooperative, No acute distress - Head Head exam: Atraumatic, Normocephalic, Normal inspection - Eye Eye exam: Normal appearance, PERRL - ENT Throat exam: Tonsillar erythema. negative: Normal inspection, Tonsillomegaly, Tonsillar exudate - Neck Neck exam: Normal inspection, Full ROM. negative: Tenderness - Respiratory Respiratory exam: Normal lung sounds bilaterally, Chest wall tenderness (with any palpation of her anterior chest wall the pain she is experiencing is 100% reproducible.). negative: Respiratory distress - Cardiovascular Cardiovascular Exam: Regular rate, Normal rhythm, Normal heart sounds - GI/Abdominal GI/Abdominal exam: Soft, Normal bowel sounds. negative: Tenderness - Extremities Extremities exam: Normal inspection, Full ROM, Normal capillary refill. negative: Calf tenderness, Pedal edema, Tenderness - Neurological Neurological exam: Alert, Normal gait. negative: Abnormal gait, Motor sensory deficit Course Vital Signs 08/13/17 03:34 Temperature 98 F Pulse Rate [ 88 Bilateral] Respiratory 18 Rate Blood Pressure 140/86 [Left Arm] Pulse Ox 96 - Reevaluation(s) Reevaluation #1: The patient is doing well at this time. I did discuss the neg CXR and lab work with the patient. We will treat her for a bacterial bronchitis and Tessalon for cough and have her F/U with her PCP early next week if not better. 08/13/17 04:30 Medical Decision Making - Data Complexity MDM Data: Labs Ordered and/or Reviewed, X-Ray Ordered and/or Reviewed, EKG Ordered and/or Reviewed - Lab Data Result diagrams: 08/13/17 03:58 08/13/17 03:58 - EKG Data -: EKG Interpreted by De EKG: No Acute Changes, Unchanged From Previous (No change from 12/29/16.) - Radiology Data Radiology results: Report reviewed (CXR: neg definite acute infiltrate.) Disposition Disposition: Discharge Clinical Impression: URI (upper respiratory infection) Qualifiers: URI type: unspecified URI Qualified Code(s): J06.9 - Acute upper respiratory infection, unspecified Disposition: Home, Self-Care Condition: (2) Stable Instructions: Upper Respiratory Infection (ED) Additional Instructions: Please stop the Tamiflu and continue the Doxycycline as directed and the Tessalon for cough. Please see your PCP for recheck next week and return to the ER for any worsening cough, Chest pain, fever, or shortness of breath. Prescriptions: Benzonatate [Tessalon Perle] 100 mg PO TID #20 capsule Doxycycline Monohydrate [Mondoxyne Nl] 100 mg PO BID #14 capsule Forms: Patient Portal Access Time of Disposition: 04:43 Quality - Quality Measures Quality Measures: N/A - Blood Pressure Screening View Details: Yes Does Patient Have Any of the Following: No Blood Pressure Classification: Pre-Hypertensive BP Reading Systolic Measurement: 138 Diastolic Measurement: 57 Screening for High Blood Pressure: < Pre-Hypertensive BP, F/U Documented > [ G8950] Pre-Hypertensive Follow-up Interventions: Referral to alternative/primary care provider.
[2017-08-13 04:09] LABS: HEMOGLOBIN 13.1 gm/dl (11.6-16.0); MEAN CELL VOLUME 91.3 fl (81-97); MEAN CORPUSCULAR HEMOGLOBIN 29.9 pg (27-33); MEAN CORPUSCULAR HGB CONC 32.8 g/dl (32-36); MEAN PLATELET VOLUME 9.2 fl (7.4-10.4); PLATELET COUNT 271 K/uL (130-400); RED BLOOD COUNT 4.38 M/uL (3.80-5.40); RED CELL DISTRIBUTION WIDTH 12.7 % (11.5-14.5)
[2017-08-13 04:10] LABS: BLOOD UREA NITROGEN 9 mg/dL (8-23); CREATININE 0.6 mg/dL (0.5-0.9); EST GLOMERULAR FILTRATION RATE > 60 mL/min
[2017-08-13 04:11] LABS: INFLUENZA A NEGATIVE (NEGATIVE); INFLUENZA B NEGATIVE (NEGATIVE)
[2017-08-13 04:13] LABS: GLUCOSE,RANDOM 95 mg/dL (74-109)
[2017-08-13 04:16] LABS: CREATINE PHOSPHOKINASE 72 U/L (26-192)
[2017-08-13 04:18] LABS: CKMB 1.3 ng/mL (<3.77)
[2017-08-13] MEDS: DOXYCYCLINE HYCLATE 100 MG CAPSULE PO ONE (04:26)
--- NOTE | 2017-08-13 12:39 | RADIOLOGY REPORT ---
EXAM: CHEST, TWO VIEWS HISTORY: CHEST PAIN. TECHNIQUE: Frontal and lateral views of the chest were obtained. Comparison: 12/29/16 chest. FINDINGS: The heart size is normal. Atheromatous change thoracic aorta. Post surgical changes to the right shoulder. Minor scarring in the left lung base. The lungs are otherwise clear. IMPRESSION: NO ACUTE CARDIOPULMONARY PROCESS. JOB NUMBER: [id number] MTDD
== END 2017-08-13 04:45 | disposition home or self-care (01) ==
LOC: ER 03:30
DX: J06.9 Acute upper respiratory infection, unspecified (principal); R07.89 Other chest pain; R06.02 Shortness of breath; R55 Syncope and collapse; R11.2 Nausea with vomiting, unspecified; I10 Essential (primary) hypertension
CPT/HCPCS: 71046; 80048; 82550; 82553; 84484; 85027; 87400; 93005; 93010; 96361; 96374; 99284; J2405; J7030

== ENCOUNTER 2018-01-03 17:14 | Emergency (ER) | payer MEDICARE, BC ==
--- NOTE | 2018-01-03 17:57 | Emergency Department Record ---
History of Present Illness - General Chief Complaint: Ankle/Foot Injury Stated Complaint: FALL RT ANKLE SWELLING/PAIN Time Seen by Provider: 01/03/18 17:20 Source: Patient, RN notes reviewed Mode of Arrival: Wheelchair - History of Present Illness Initial Comments: fall one hour ago tripped on Dog. and her right ankle swollen and painful. right shoulder painful but FROM and no deformities Complaint: Ankle injury Onset/Timin -: Hour(s) Type of Injury: Blunt Place: Home Severity: Severe Severity scale (1-10): 8 Improves With: Nothing Worsens With: Nothing Context: Fall Treatments Prior to Arrival: Cold therapy - Related Data Previous Rx's Medication Instructions Recorded Naproxen [Naprosyn] 500 mg PO BID #20 tablet 01/03/18 Allergies Allergy/AdvReac Type Severity Reaction Status Date / Time hydromorphone Allergy Unknown RAPID Verified 01/03/18 17:28 HEART RATE levofloxacin Allergy Unknown HIVES Verified 01/03/18 17:28 Sulfa (Sulfonamide Allergy Unknown RAPID Verified 01/03/18 17:28 Antibiotics) HEART RATE Iodinated Contrast- Oral and Allergy RASH Verified 01/03/18 17:28 IV Dye [Iodinated Contrast Media - Oral and] iodine Allergy RASH Verified 01/03/18 17:28 Travel Screening - Travel/Exposure Within Last 30 Days Have you traveled within the last 30 days?: Yes Location Detail:: [place] - Travel/Exposure Within Last Year Have you traveled outside the [place] in the last year?: No - Additonal Travel Details Have you been exposed to anyone with a communicable illness?: No - Travel Symptoms Symptom Screening: None Review of Systems Reviewed: No additional complaints except as noted below Constitutional: Reports: As per HPI. Denies: Chills, Fever, Malaise, Night sweats, Weakness, Weight change Eyes: Reports: As per HPI. Denies: Eye discharge, Eye pain, Photophobia, Vision change ENT: Reports: As per HPI. Denies: Congestion, Dental pain, Ear pain, Epistaxis , Hearing loss, Throat pain Respiratory: Reports: As per HPI. Denies: Cough, Dyspnea, Hemoptysis, Stridor, Wheezes Cardiovascular: Reports: As per HPI. Denies: Arrhythmia, Chest pain, Dyspnea on exertion, Edema, Murmurs, Orthopnea, Palpitations, Paroxysmal nocturnal dyspnea, Rheumatic Fever, Syncope Endocrine: Reports: As per HPI. Denies: Fatigue, Heat or cold intolerance, Polydipsia, Polyuria Gastrointestinal: Reports: As per HPI. Denies: Abdominal pain, Constipation, Diarrhea, Hematemesis, Hematochezia, Melena, Nausea, Vomiting Genitourinary: Reports: As per HPI. Denies: Abnormal menses, Discharge, Dyspareunia, Dysuria, Frequency, Hematuria, Incontinence, Retention, Urgency Musculoskeletal: Reports: As per HPI, Other (right ankle pain). Denies: Arthralgia, Back pain, Gout, Joint swelling, Myalgia, Neck pain Skin: Reports: As per HPI. Denies: Bruising, Change in color, Change in hair/ nails, Lesions, Pruritus, Rash Neurological: Reports: As per HPI. Denies: Abnormal gait, Confusion, Headache, Numbness, Paresthesias, Seizure, Tingling, Tremors, Vertigo, Weakness Psychiatric: Reports: As per HPI. Denies: Anxiety, Auditory hallucinations, Depression, Homicidal thoughts, Suicidal thoughts, Visual hallucinations Hematological/Lymphatic: Reports: As per HPI. Denies: Anemia, Blood Clots, Easy bleeding, Easy bruising, Swollen glands Past Medical History - SOCIAL HISTORY Smoking Status: Never smoker Alcohol Use: None Drug Use: None - RESPIRATORY Hx Respiratory Disorders: Yes Hx Asthma: Yes Hx Bronchitis: Yes - CARDIOVASCULAR Hx Cardio Disorders: Yes Hx Hypertension: Yes - NEURO Hx Neuro Disorders: Yes Hx Headaches: Yes (migraines) Comment:: migraines - GI Hx GI Disorders: Yes Hx Celiac Disease: Yes Hx Reflux: Yes Hx Hiatal Hernia: Yes (scope in June) - Hx Genitourinary Disorders: No - ENDOCRINE Hx Endocrine Disorders: No - MUSCULOSKELETAL Hx Musculoskeletal Disorders: Yes Hx Arthritis: Yes (rheumatoid) Hx Gout: Yes Comment:: Polymyalgia Rheumatica - PSYCH Hx Psych Problems: No - HEMATOLOGY/ONCOLOGY Hx Hematology/Oncology Disorders: No Family Medical History Any Significant Family History?: No Hx Alcohol Use: Father Hx Cancer: Father Hx Dementia: Mother Hx Heart Disease: Mother, Brother/Sister Hx HTN: Brother/Sister Hx Stroke: Mother Physical Exam - General General Appearance: Alert, Oriented x3, Cooperative, No acute distress - Head Head exam: Normal inspection - Eye Eye exam: Normal appearance, PERRL Pupils: Normal accommodation - ENT ENT exam: Normal exam, Mucous membranes moist, Normal external ear exam, Normal orophraynx, TM's normal bilaterally Ear exam: Normal external inspection. negative: External canal tenderness Nasal Exam: Normal inspection. negative: Discharge, Sinus tenderness Mouth exam: Normal external inspection, Tongue normal Teeth exam: Normal inspection. negative: Dental caries Throat exam: Normal inspection. negative: Tonsillar erythema, Tonsillar exudate - Neck Neck exam: Normal inspection, Full ROM. negative: Tenderness - Respiratory Respiratory exam: Normal lung sounds bilaterally. negative: Respiratory distress - Cardiovascular Cardiovascular Exam: Regular rate, Normal rhythm, Normal heart sounds - GI/Abdominal GI/Abdominal exam: Soft, Normal bowel sounds. negative: Tenderness - Rectal Rectal exam: Deferred - exam: Deferred - Extremities Extremities exam: Normal inspection, Full ROM, Normal capillary refill, Tenderness (swollen and painful) - Back Back exam: Reports: Normal inspection, Full ROM. Denies: Muscle spasm, Rash noted, Tenderness - Neurological Neurological exam: Alert, Normal gait, Oriented X3, Reflexes normal - Psychiatric Psychiatric exam: Normal affect, Normal mood - Skin Skin exam: Dry, Intact, Normal color, Warm Course Vital Signs 01/03/18 17:17 Temperature 98.6 F Pulse Rate 78 Respiratory 16 Rate Blood Pressure 140/80 Pulse Ox 98 Medical Decision Making - Data Complexity MDM Data: X-Ray Ordered and/or Reviewed (negative for fractures) Disposition Clinical Impression: Ankle sprain Qualifiers: Encounter type: initial encounter Involved ligament of ankle: anterior talofibular ligament Laterality: right Qualified Code(s): S93.491A - Sprain of other ligament of right ankle, initial encounter Disposition: Home, Self-Care Condition: (1) Good Instructions: Ankle Sprain (ED) Additional Instructions: follow up with family in 4 days Prescriptions: Naproxen [Naprosyn] 500 mg PO BID #20 tablet Forms: Patient Portal Access Time of Disposition: 18:23 Quality - Quality Measures Quality Measures: N/A - Headache: Neuroimaging ICD10 Codes Entered: No - Blood Pressure Screening Does Patient Have Any of the Following: No Blood Pressure Classification: Pre-Hypertensive BP Reading Systolic Measurement: 140 Diastolic Measurement: 80 Screening for High Blood Pressure: < Pre-Hypertensive BP, F/U Documented > [ G8950] Pre-Hypertensive Follow-up Interventions: Referral to alternative/primary care provider.
[2018-01-03] MEDS ORDERED: NAPROXEN 250 MG TABLET PO ONE (18:25)
--- NOTE | 2018-01-03 23:17 | RADIOLOGY REPORT ---
EXAM: ANKLE RIGHT 3 VIEWS HISTORY: LATERAL AND POSTERIOR ANKLE PAIN AND SWELLING. FELL OVER DOG. COMPARISON: None TECHNIQUE: Right ankle, three views. FINDINGS: Mild soft tissue swelling. Bones are osteopenic. Well-corticated calcifications in the posterior ankle joint compatible with remote trauma. This includes an apparent os trigonum. Posterior and plantar calcaneal enthesophytes. There also appears to be an enthesophyte at the fifth metatarsal base. Osseous remodeling medial malleolus. No clearly acute osseous abnormality. IMPRESSION: CHRONIC-APPEARING CHANGES WITHIN THE RIGHT ANKLE. NO CONCLUSIVE ACUTE PROCESS IDENTIFIED. JOB NUMBER: [id number] MTDD
== END 2018-01-03 18:52 | disposition home or self-care (01) ==
LOC: ER 17:14
DX: S93.491A Sprain of other ligament of right ankle, initial encounter (principal); M25.511 Pain in right shoulder; I10 Essential (primary) hypertension; W18.09XA Striking against other object with subsequent fall, initial encounter; Y92.009 Unspecified place in unspecified non-institutional (private) residence as the place of occurrence of the external cause
CPT/HCPCS: 99283

== ENCOUNTER 2018-01-31 14:34 | Emergency (ER) | payer MEDICARE, BC ==
--- NOTE | 2018-01-31 16:00 | Emergency Department Record ---
History of Present Illness - General Chief Complaint: Dizziness Stated Complaint: LIGHTHEADED,NAUSEA Time Seen by Provider: 01/31/18 15:53 Source: Patient, Family Mode of Arrival: Ambulatory Limitations: No limitations - History of Present Illness Initial Comments: 63 yo female presents with about 4 days of an itchy rash that goes across the abdomen. No fever, blisters. No bruising. It is on both sides of the abdomen. It is not painful. She also has had 4 days of a spinning sensation with turning of the head. No vision changes, speech, hearing, numbness, weakness. The spinning feeling resolves if still within a few seconds. She denies any coordination issues. MD Complaint: Dizziness, Other (rash) Onset/Timin -: Days(s) Timing: Unsure Description: "Room spinning" History of Same: Yes History of Trauma: No Severity: Mild Improves With: Nothing Worsens With: Movement Associated Symptoms: Other - [place] Coma Scale Eye Response: (4) Open spontaneously Motor Response: (6) Obeys commands Verbal Response: (5) Oriented [place] Total: 15 - Related Data Previous Rx's Medication Instructions Recorded Cetirizine HCl [Zyrtec] 10 mg PO DAILY #30 cap 01/31/18 Clotrimazole 45 gm VG BID #1 cream.appl 01/31/18 Meclizine HCl [Antivert] 25 mg PO Q8H #20 tablet 01/31/18 Allergies Allergy/AdvReac Type Severity Reaction Status Date / Time hydromorphone Allergy Unknown RAPID Verified 01/03/18 17:28 HEART RATE levofloxacin Allergy Unknown HIVES Verified 01/03/18 17:28 Sulfa (Sulfonamide Allergy Unknown RAPID Verified 01/03/18 17:28 Antibiotics) HEART RATE Iodinated Contrast- Oral and Allergy RASH Verified 01/03/18 17:28 IV Dye [Iodinated Contrast Media - Oral and] iodine Allergy RASH Verified 01/03/18 17:28 Travel Screening - Travel/Exposure Within Last 30 Days Have you traveled within the last 30 days?: No Review of Systems Constitutional: Denies: Chills, Fever, Malaise, Weakness Eyes: Denies: Eye discharge, Eye pain, Photophobia, Vision change ENT: Denies: Congestion, Throat pain Respiratory: Denies: Cough, Dyspnea, Hemoptysis, Stridor, Wheezes Cardiovascular: Denies: Chest pain, Palpitations, Syncope Endocrine: Denies: Fatigue, Polydipsia, Polyuria Gastrointestinal: Denies: Abdominal pain, Diarrhea, Nausea, Vomiting Genitourinary: Denies: Dysuria, Frequency, Urgency Musculoskeletal: Denies: Arthralgia, Back pain, Joint swelling, Myalgia Skin: Reports: As per HPI, Change in color, Rash. Denies: Bruising Neurological: Reports: Vertigo. Denies: Abnormal gait, Confusion, Headache, Numbness, Paresthesias, Seizure, Tingling, Tremors, Weakness Psychiatric: Denies: Anxiety Hematological/Lymphatic: Denies: Blood Clots, Easy bleeding, Easy bruising, Swollen glands Past Medical History - SOCIAL HISTORY Smoking Status: Never smoker - RESPIRATORY Hx Respiratory Disorders: Yes Hx Asthma: Yes Hx Bronchitis: Yes - CARDIOVASCULAR Hx Cardio Disorders: Yes Hx Hypertension: Yes - NEURO Hx Neuro Disorders: Yes Hx Headaches: Yes (migraines) Comment:: migraines - GI Hx GI Disorders: Yes Hx Celiac Disease: Yes Hx Reflux: Yes Hx Hiatal Hernia: Yes (scope in June) - Hx Genitourinary Disorders: No - ENDOCRINE Hx Endocrine Disorders: No - MUSCULOSKELETAL Hx Musculoskeletal Disorders: Yes Hx Arthritis: Yes (rheumatoid) Hx Gout: Yes Comment:: Polymyalgia Rheumatica - PSYCH Hx Psych Problems: No - HEMATOLOGY/ONCOLOGY Hx Hematology/Oncology Disorders: No Family Medical History Any Significant Family History?: Yes Hx Alcohol Use: Father Hx Cancer: Father Hx Dementia: Mother Hx Heart Disease: Mother, Brother/Sister Hx HTN: Brother/Sister Hx Stroke: Mother Physical Exam - General General Appearance: Alert, Oriented x3, Cooperative, No acute distress Limitations: No limitations - Head Head exam: Atraumatic, Normal inspection - Eye Eye exam: Normal appearance, EOMI, Nystagmus (Fast component to patient left, brief and fatigues). negative: PERRL, Conjunctival injection, Periorbital swelling, Periorbital tenderness, Scleral icterus Pupils: Normal accommodation. negative: Irregular, Miosis, Mydriatic, Unequal - ENT ENT exam: Normal exam, Mucous membranes moist, Normal orophraynx Ear exam: Normal external inspection Nasal Exam: Normal inspection Mouth exam: Normal external inspection Teeth exam: Normal inspection - Neck Neck exam: Normal inspection, Full ROM. negative: Tenderness - Respiratory Respiratory exam: Normal lung sounds bilaterally. negative: Respiratory distress - Cardiovascular Cardiovascular Exam: Regular rate, Normal rhythm, Normal heart sounds Peripheral Pulses: 2+: Radial (R), Radial (L) - GI/Abdominal GI/Abdominal exam: Soft. negative: Tenderness - Rectal Rectal exam: Deferred - exam: Deferred - Extremities Extremities exam: Normal inspection, Normal capillary refill. negative: Pedal edema, Tenderness - Back Back exam: Reports: Normal inspection, Full ROM. Denies: Muscle spasm, Rash noted, Tenderness - Neurological Neurological exam: Alert, CN II-XII intact, Normal gait, Oriented X3, Reflexes normal, Other (Normal finger to nose, normal RIC, normal OK sign, no PND, no ataxia). negative: Altered, Motor sensory deficit - Psychiatric Psychiatric exam: Normal affect, Normal mood. negative: Agitated, Anxious - Skin Skin exam: Dry, Intact, Warm. negative: Normal color Distribution of rash: Abdomen Description of rash: Erythematous, Macular, Urticarial. negative: Crusting, Discharge, Fluctuant, Indurated, Papular, Petechial, Purpuic, Swelling, Vesicular Course Vital Signs 01/31/18 15:32 Temperature 99.1 F Pulse Rate 67 Respiratory 20 Rate Blood Pressure 129/71 Pulse Ox 100 - Reevaluation(s) Reevaluation #1: 01/31/18 17:18 The symptoms and examination are consistent with peripheral vertigo. She has lateral nystagmus. Brief episodes with turning the head that quickly fatigue with remaining still. No ataxia. No other associated symptom. TM's normal on inspection bilaterally. Disposition Disposition: Discharge Clinical Impression: Rash, Vertigo Disposition: Home, Self-Care Condition: (1) Good Instructions: Urticaria (ED), Tinea Corporis (ED), Vertigo (ED) Additional Instructions: Call your doctor for follow up this week to recheck the dizzy spinning feeling and the rash Return to the ED if either symptom is worse or in any new symptoms occur Take the antivert every 6 hours as needed Prescriptions: Cetirizine HCl [Zyrtec] 10 mg PO DAILY #30 cap Clotrimazole 45 gm VG BID #1 cream.appl Meclizine HCl [Antivert] 25 mg PO Q8H #20 tablet Forms: Patient Portal Access Time of Disposition: 16:01 Quality - Quality Measures Quality Measures: N/A, Headache (All Ages) - Headache: Neuroimaging Quality Measure: Measure #419: Overuse of Neuroimaging ICD10 Codes Entered: Yes Neurological Exam: Patient had a normal neurological exam. [G9535] Headache: Use of Neuroimaging: < CTA, CT, MRA or MRI was NOT ordered > [G9534] - Blood Pressure Screening Does Patient Have Any of the Following: Active Dx of HTN Blood Pressure Classification: Hypertensive Reading Systolic Measurement: 140 Diastolic Measurement: 69 Screening for High Blood Pressure: Patient Exclusion, Hx of HTN [G9744]
== END 2018-01-31 16:43 | disposition home or self-care (01) ==
LOC: ER 14:34
DX: H81.399 Other peripheral vertigo, unspecified ear (principal); R21 Rash and other nonspecific skin eruption; R11.0 Nausea; I10 Essential (primary) hypertension
CPT/HCPCS: 99282

== ENCOUNTER 2018-03-17 17:20 | Emergency (ER) | payer MEDICARE, BC ==
--- NOTE | 2018-03-17 17:38 | Emergency Department Record ---
History of Present Illness - General Chief complaint: Bite Insect/other Stated complaint: SNAKE BITE Time Seen by Provider: 03/17/18 17:38 Source: Patient Mode of Arrival: Ambulatory Limitations: No limitations - History of Present Illness Initial comments: [place] and thinks she may have been bit by something, possibly a snake. She did not see any animal or notice anything abnormal but did feel like there could have been a bite to her L lower leg. Over the next 2 days the area has become more painful and tender. She did see her family doctor this AM who started her on Augmentin and told her to go to the ER if it worsened and since it has she is now here. She did receive a Td shot this AM. complaint: Insect bite/sting, Rash Onset/Timin -: Days(s) Hx Tetanus Toxoid Vaccination: Yes Year of Tetanus Vaccination: 2009 Location: [place] Severity: Moderate - Related Data Home Medications Medication Instructions Recorded Confirmed Last Taken Albuterol Sulfate [Proair Hfa] 1 - 2 puff IH .EVERY 4-6 HOURS PRN 03/17/1803/1703/10/18 Previous Rx's Medication Instructions Recorded Meclizine HCl [Antivert] 25 mg PO Q8H #20 tablet 01/31/18 Clindamycin HCl [Cleocin HCl] 300 mg PO QID #28 capsule 03/17/18 Allergies Allergy/AdvReac Type Severity Reaction Status Date / Time hydromorphone Allergy Unknown RAPID Verified 03/17/18 17:31 HEART RATE levofloxacin Allergy Unknown HIVES Verified 03/17/18 17:31 Sulfa (Sulfonamide Allergy Unknown RAPID Verified 03/17/18 17:31 Antibiotics) HEART RATE Iodinated Contrast- Oral and Allergy RASH Verified 03/17/18 17:31 IV Dye [Iodinated Contrast Media - Oral and] iodine Allergy RASH Verified 03/17/18 17:31 Review of Systems Constitutional: Denies: Chills, Fever Eyes: Denies: Eye discharge ENT: Denies: Congestion Respiratory: Denies: Cough, Dyspnea Past Medical History - SOCIAL HISTORY Smoking Status: Never smoker - RESPIRATORY Hx Respiratory Disorders: Yes Hx Asthma: Yes Hx Bronchitis: Yes - CARDIOVASCULAR Hx Cardio Disorders: Yes Hx Hypertension: Yes - NEURO Hx Neuro Disorders: Yes Hx Headaches: Yes (migraines) Comment:: migraines - GI Hx GI Disorders: Yes Hx Celiac Disease: Yes Hx Reflux: Yes Hx Hiatal Hernia: Yes (scope in June scheduled) - Hx Genitourinary Disorders: No - ENDOCRINE Hx Endocrine Disorders: No - MUSCULOSKELETAL Hx Musculoskeletal Disorders: Yes Hx Arthritis: Yes (rheumatoid) Hx Gout: Yes Comment:: Polymyalgia Rheumatica - PSYCH Hx Psych Problems: No - HEMATOLOGY/ONCOLOGY Hx Hematology/Oncology Disorders: No Family Medical History Hx Alcohol Use: Father Hx Cancer: Father Hx Dementia: Mother Hx Heart Disease: Mother, Brother/Sister Hx HTN: Brother/Sister Hx Stroke: Mother Physical Exam - General General Appearance: Alert, Oriented x3, Cooperative, No acute distress - Head Head exam: Atraumatic, Normocephalic, Normal inspection - Eye Eye exam: Normal appearance, PERRL, EOMI - Neck Neck exam: Normal inspection, Full ROM. negative: Tenderness - Respiratory Respiratory exam: Normal lung sounds bilaterally. negative: Respiratory distress - Cardiovascular Cardiovascular Exam: Regular rate, Normal rhythm, Normal heart sounds - Extremities Extremities exam: Normal capillary refill, Tenderness (At the wound site.). negative: Normal inspection (There is a 1 x 1 cm circular very erythematous lesion to the L lower leg just proximal to her ankle. There is 2 cm of surrounding mild erythema and tenderness. There is no streaking lymphangitis.), Pedal edema - Neurological Neurological exam: Alert. negative: Motor sensory deficit Course - Reevaluation(s) Reevaluation #1: The patient is doing very well at this time. She denies any new symptoms and I did discuss the need for warm compresses and to take the Clindamycin as directed. She is to return to the ER for any worsening symptoms. 03/17/18 18:17 Disposition Disposition: Discharge Clinical Impression: Cellulitis of leg Qualifiers: Laterality: left Qualified Code(s): L03.116 - Cellulitis of left lower limb Disposition: Home, Self-Care Condition: (2) Stable Instructions: Cellulitis (ED) Additional Instructions: Please use warm compresses to the L leg every 2 hours for 20 minutes and elevate the L leg as much as possible. Please wash daily with soap and water and keep Abx ointment on the wound daily. Stop the Augmentin and start the Clindamycin. Please see your family doctor for recheck on Thursday and return to the ER for any worsening symptoms of pain, swelling, redness or any fever. Prescriptions: Clindamycin HCl [Cleocin HCl] 300 mg PO QID #28 capsule Forms: Patient Portal Access Time of Disposition: 18:19 Quality - Quality Measures Quality Measures: Headache (All Ages) - Headache: Neuroimaging Quality Measure: Measure #419: Overuse of Neuroimaging ICD10 Codes Entered: Yes View Detail: Yes Neurological Exam: Patient had a normal neurological exam. [G9535] Headache: Use of Neuroimaging: < CTA, CT, MRA or MRI was NOT ordered > [G9534] - Blood Pressure Screening View Details: Yes Does Patient Have Any of the Following: No Blood Pressure Classification: Pre-Hypertensive BP Reading Systolic Measurement: 131 Diastolic Measurement: 76 Screening for High Blood Pressure: < Pre-Hypertensive BP, F/U Documented > [ G8950] Pre-Hypertensive Follow-up Interventions: Referral to alternative/primary care provider.
[2018-03-17] MEDS ORDERED: CLINDAMYCIN 600MG/50ML PREMIX 600 MG/50 ML BAG IVPB ONE (17:39)
== END 2018-03-17 18:34 | disposition home or self-care (01) ==
LOC: ER 17:20
DX: L03.116 Cellulitis of left lower limb (principal); I10 Essential (primary) hypertension
CPT/HCPCS: 96365; 99284

== ENCOUNTER 2018-04-01 05:32 | Emergency (ER) | payer MEDICARE, BC ==
[2018-04-01] MEDS ORDERED: TOPICAL LIDOCAINE W/ EPI 5 ML TOP ONE (05:40)
--- NOTE | 2018-04-01 05:57 | Emergency Department Record ---
History of Present Illness - General Chief complaint: Nosebleed/epistaxis Stated complaint: NOSE BLEED Time Seen by Provider: 04/01/18 05:40 Source: Patient Mode of Arrival: Ambulatory Limitations: No limitations - History of Present Illness Initial comments: 63 yo female presents to ED for evaluation of a nose bleed that began just prior to arrival. Patient reports that she was seen by an ENT yesterday and underwent cauterization for a nose bleed, woke up this morning with significant bleeding from the left nare again. Patient denies injury or trauma, and does not take anticoagulation medications at home. MD complaint: Epistaxis Onset/Timin -: Minutes(s) Location: Nose Severity: Moderate Consistency: Constant Improves with: Pressure Worsens with: None Context-Epistaxis: Recent surgery/procedure - Related Data Previous Rx's Medication Instructions Recorded Cephalexin [Keflex] 500 mg PO QID #27 cap 04/01/18 Allergies Allergy/AdvReac Type Severity Reaction Status Date / Time hydromorphone Allergy Unknown RAPID Verified 03/17/18 17:31 HEART RATE levofloxacin Allergy Unknown HIVES Verified 03/17/18 17:31 Sulfa (Sulfonamide Allergy Unknown RAPID Verified 03/17/18 17:31 Antibiotics) HEART RATE Iodinated Contrast- Oral and Allergy RASH Verified 03/17/18 17:31 IV Dye [Iodinated Contrast Media - Oral and] iodine Allergy RASH Verified 03/17/18 17:31 Travel Screening - Travel/Exposure Within Last 30 Days Have you traveled within the last 30 days?: No - Travel Symptoms Symptom Screening: None Review of Systems Constitutional: Denies: Chills, Fever, Malaise, Night sweats Eyes: Denies: Eye discharge, Eye pain ENT: Reports: Epistaxis. Denies: Congestion, Ear pain Respiratory: Denies: Cough, Dyspnea Cardiovascular: Denies: Chest pain, Dyspnea on exertion Endocrine: Denies: Fatigue, Heat or cold intolerance Gastrointestinal: Denies: Abdominal pain, Nausea, Vomiting Genitourinary: Denies: Incontinence, Retention Musculoskeletal: Denies: Arthralgia, Back pain Skin: Denies: Bruising, Change in color Neurological: Denies: Abnormal gait, Confusion, Headache, Seizure Psychiatric: Denies: Anxiety Hematological/Lymphatic: Denies: Anemia, Blood Clots Past Medical History - SOCIAL HISTORY Smoking Status: Never smoker - RESPIRATORY Hx Respiratory Disorders: Yes Hx Asthma: Yes Hx Bronchitis: Yes - CARDIOVASCULAR Hx Cardio Disorders: Yes Hx Hypertension: Yes - NEURO Hx Neuro Disorders: Yes Hx Headaches: Yes (migraines) - GI Hx GI Disorders: Yes Hx Celiac Disease: Yes Hx Reflux: Yes Hx Hiatal Hernia: Yes (scope in June scheduled) - Hx Genitourinary Disorders: No - ENDOCRINE Hx Endocrine Disorders: No - MUSCULOSKELETAL Hx Musculoskeletal Disorders: Yes Hx Arthritis: Yes (rheumatoid) Hx Gout: Yes Comment:: Polymyalgia Rheumatica - PSYCH Hx Psych Problems: No - HEMATOLOGY/ONCOLOGY Hx Hematology/Oncology Disorders: No Family Medical History Any Significant Family History?: Yes Hx Alcohol Use: Father Hx Cancer: Father Hx Dementia: Mother Hx Heart Disease: Mother, Brother/Sister Hx HTN: Brother/Sister Hx Stroke: Mother Physical Exam - General General Appearance: Alert, Oriented x3, Cooperative, Moderate distress Limitations: No limitations - Head Head exam: Atraumatic, Normocephalic, Normal inspection Head exam detail: negative: Abrasion, Contusion, Hernandez's sign, General tenderness, Hematoma, Laceration - Eye Eye exam: Normal appearance. negative: Conjunctival injection, Periorbital swelling, Periorbital tenderness, Scleral icterus - ENT Ear exam: negative: Auricular hematoma, Auricular trauma Nasal Exam: Active bleeding. negative: Discharge, Dried blood, Foreign body Mouth exam: negative: Drooling, Laceration, Muffled voice, Tongue elevation Throat exam: negative: Tonsillar erythema, Tonsillomegaly, R peritonsillar mass , L peritonsillar mass - Neck Neck exam: Normal inspection. negative: Meningismus, Tenderness - Respiratory Respiratory exam: Normal lung sounds bilaterally. negative: Rales, Respiratory distress, Rhonchi, Stridor - Cardiovascular Cardiovascular Exam: Regular rate, Normal rhythm, Normal heart sounds - GI/Abdominal GI/Abdominal exam: Soft. negative: Rebound, Rigid, Tenderness - Rectal Rectal exam: Deferred - exam: Deferred - Extremities Extremities exam: Normal inspection. negative: Calf tenderness, Pedal edema, Tenderness - Back Back exam: Denies: CVA tenderness (R), CVA tenderness (L) - Neurological Neurological exam: Alert, Normal gait, Oriented X3 - Psychiatric Psychiatric exam: Normal affect, Normal mood - Skin Skin exam: Normal color. negative: Abrasion Type of lesion: negative: abrasion Course Vital Signs 04/01/18 05:34 Temperature 98.6 F Pulse Rate 93 H Respiratory 16 Rate Blood Pressure 175/92 Pulse Ox 99 - Reevaluation(s) Reevaluation #1: 04/01/18 06:03 AM Procedure Note: TLE soaked cotton balls were removed from the left anterior nare, hemostatic ballon was placed into the nare. [place] was filled with 5 mL of sterile saline with cessation of the patient's bleeding symptoms. Patient tolerated the procedure well without complications. Will monitor for re-bleeding. Reevaluation #2: 04/01/18 06:44 Patient was reassessed following anterior packing, no further bleeding noted and the patient denies bleeding posteriorly into the pharynx at this time. Patient was started on Keflex prior to discharge. Patient appears stable for discharge at this time. Disposition Disposition: Discharge Clinical Impression: Epistaxis Disposition: Home, Self-Care Condition: (2) Stable Instructions: Nosebleed (ED) Additional Instructions: Return to ED if your symptoms worsen or if you have any concerns. Keflex as directed. Follow-up with your ENT specialist in 1-3 days as directed. Prescriptions: Cephalexin [Keflex] 500 mg PO QID #27 cap Forms: Patient Portal Access Time of Disposition: 06:02 Quality - Quality Measures Quality Measures: N/A - Blood Pressure Screening Does Patient Have Any of the Following: Active Dx of HTN Blood Pressure Classification: Hypertensive Reading Systolic Measurement: 175 Diastolic Measurement: 92 Screening for High Blood Pressure: Patient Exclusion, Hx of HTN [G9744]
[2018-04-01] MEDS ORDERED: CEPHALEXIN 500 MG CAPSULE PO STA (06:03)
== END 2018-04-01 06:46 | disposition home or self-care (01) ==
LOC: ER 05:32
DX: R04.0 Epistaxis (principal); I10 Essential (primary) hypertension
CPT/HCPCS: 30901; 99283

== ENCOUNTER 2018-04-02 20:39 | Emergency (ER) | payer MEDICARE, BC ==
--- NOTE | 2018-04-02 21:01 | Emergency Department Record ---
History of Present Illness - General Chief Complaint: Recheck - Other Stated Complaint: REMOVE A PRESSURE PACK IN NOSE AND NOT FEELING WEL Time Seen by Provider: 04/02/18 20:43 Source: Patient, Family () - History of Present Illness Initial Comments: The patient and her report that she developed a nosebleed on 04-01-18 around 0500 after having had her left anterior nose blood vessels cauterized in the office of an ENT physican in [place] the afternoon prior. A left anterior nasal balloon was placed. She states he had some blood down the back of her throat the hours after placement, but none since 0500 this morning. She also was placed on keflex which she was taking. She also complains of nausea without vomiting, and a headache which was relieved with tylenol taken earlier tonight. she denies vision changes or tenderness of the temporal area of her head. She is here to have the packing removed. She reports that her liver enzymes in the past have been elevated and is wondering if she is anemic from the blood she lost from the nose bleed. - Related Data Previous Rx's Medication Instructions Recorded Cephalexin [Keflex] 500 mg PO QID #27 cap 04/01/18 Allergies Allergy/AdvReac Type Severity Reaction Status Date / Time hydromorphone Allergy Unknown RAPID Verified 03/17/18 17:31 HEART RATE levofloxacin Allergy Unknown HIVES Verified 03/17/18 17:31 Sulfa (Sulfonamide Allergy Unknown RAPID Verified 03/17/18 17:31 Antibiotics) HEART RATE Iodinated Contrast- Oral and Allergy RASH Verified 03/17/18 17:31 IV Dye [Iodinated Contrast Media - Oral and] iodine Allergy RASH Verified 03/17/18 17:31 Review of Systems Reviewed: No additional complaints except as noted below Constitutional: Reports: As per HPI. Denies: Chills, Fever, Malaise, Night sweats, Weakness, Weight change Eyes: Reports: As per HPI. Denies: Eye discharge, Eye pain, Photophobia, Vision change ENT: Reports: As per HPI. Denies: Congestion, Dental pain, Ear pain, Epistaxis , Hearing loss, Throat pain Respiratory: Reports: As per HPI. Denies: Cough, Dyspnea, Hemoptysis, Stridor, Wheezes Cardiovascular: Reports: As per HPI. Denies: Arrhythmia, Chest pain, Dyspnea on exertion, Edema, Murmurs, Orthopnea, Palpitations, Paroxysmal nocturnal dyspnea, Rheumatic Fever, Syncope Endocrine: Reports: As per HPI. Denies: Fatigue, Heat or cold intolerance, Polydipsia, Polyuria Gastrointestinal: Reports: As per HPI. Denies: Abdominal pain, Constipation, Diarrhea, Hematemesis, Hematochezia, Melena, Nausea, Vomiting Genitourinary: Reports: As per HPI. Denies: Abnormal menses, Discharge, Dyspareunia, Dysuria, Frequency, Hematuria, Incontinence, Retention, Urgency Musculoskeletal: Reports: As per HPI. Denies: Arthralgia, Back pain, Gout, Joint swelling, Myalgia, Neck pain Skin: Reports: As per HPI. Denies: Bruising, Change in color, Change in hair/ nails, Lesions, Pruritus, Rash Neurological: Reports: As per HPI. Denies: Abnormal gait, Confusion, Headache, Numbness, Paresthesias, Seizure, Tingling, Tremors, Vertigo, Weakness Psychiatric: Reports: As per HPI. Denies: Anxiety, Auditory hallucinations, Depression, Homicidal thoughts, Suicidal thoughts, Visual hallucinations Hematological/Lymphatic: Reports: As per HPI. Denies: Anemia, Blood Clots, Easy bleeding, Easy bruising, Swollen glands Past Medical History - SOCIAL HISTORY Smoking Status: Never smoker Alcohol Use: None Drug Use: None - RESPIRATORY Hx Respiratory Disorders: Yes Hx Asthma: Yes Hx Bronchitis: Yes - CARDIOVASCULAR Hx Cardio Disorders: Yes Hx Hypertension: Yes - NEURO Hx Neuro Disorders: Yes Hx Headaches: Yes (migraines) - GI Hx GI Disorders: Yes Hx Celiac Disease: Yes Hx Reflux: Yes Hx Hiatal Hernia: Yes (scope in June) - Hx Genitourinary Disorders: No - ENDOCRINE Hx Endocrine Disorders: No - MUSCULOSKELETAL Hx Musculoskeletal Disorders: Yes Hx Arthritis: Yes (rheumatoid) Hx Gout: Yes Comment:: Polymyalgia Rheumatica - PSYCH Hx Psych Problems: No - HEMATOLOGY/ONCOLOGY Hx Hematology/Oncology Disorders: No Family Medical History Any Significant Family History?: Yes Hx Alcohol Use: Father Hx Cancer: Father Hx Dementia: Mother Hx Heart Disease: Mother, Brother/Sister Hx HTN: Brother/Sister Hx Stroke: Mother Physical Exam - General General Appearance: Alert, Oriented x3, Cooperative, No acute distress, Other ( left anteror nasal balloon, dabbing a clear to pink tinged fluid from the tip of her nose. ) - Head Head exam: Normal inspection Head exam detail: negative: Tenderness of temporal artery - Eye Eye exam: Normal appearance, PERRL Pupils: Normal accommodation - ENT ENT exam: Normal exam, Mucous membranes moist, Normal external ear exam, Normal orophraynx, TM's normal bilaterally Ear exam: Normal external inspection. negative: External canal tenderness Nasal Exam: Normal inspection. negative: Discharge, Sinus tenderness Mouth exam: Normal external inspection, Tongue normal Teeth exam: Normal inspection. negative: Dental caries Throat exam: Normal inspection. negative: Tonsillar erythema, Tonsillar exudate - Neck Neck exam: Normal inspection, Full ROM. negative: Tenderness - Respiratory Respiratory exam: Normal lung sounds bilaterally. negative: Respiratory distress - Cardiovascular Cardiovascular Exam: Regular rate, Normal rhythm, Normal heart sounds - GI/Abdominal GI/Abdominal exam: Soft, Normal bowel sounds. negative: Tenderness - Rectal Rectal exam: Deferred - exam: Deferred - Extremities Extremities exam: Normal inspection, Full ROM, Normal capillary refill. negative: Tenderness - Back Back exam: Reports: Normal inspection, Full ROM. Denies: Muscle spasm, Rash noted, Tenderness - Neurological Neurological exam: Alert, Normal gait, Oriented X3, Reflexes normal - Psychiatric Psychiatric exam: Normal affect, Normal mood - Skin Skin exam: Dry, Intact, Normal color, Warm Course Vital Signs 04/02/18 20:48 Temperature 98.3 F Pulse Rate [ 72 Bilateral] Respiratory 18 Rate Blood Pressure 143/79 [Left Arm] Pulse Ox 100 - Reevaluation(s) Reevaluation #1: Patient and spouse given lengthy instruction of need for followup of worsened liver function tests. She is awre of the elevations, but now also is aware that they are worsened elevations, including coagulation problems. She understands that it has not yet been 48 hours for her nasal pack, and that with her coagulopathy she should wait another day, and recheck with a facility that has ability to handle complications of bleeding from removing the pack. She should also continue her keflex antibiotic. She also states her nausea has improved with the zofran and will be sent home with a zofran for home. She will recheck at [facility] in [place], and she also will follow with her PCP for her liver conditions. She also should limit tylenol use as it is prpocessed through the liver. 04/02/18 22:34 Medical Decision Making - Management Options MDM Management: No Additional Work-up Planned - Data Complexity MDM Data: Labs Ordered and/or Reviewed - Lab Data Result diagrams: 04/02/18 21:10 04/02/18 21:10 Disposition Disposition: Discharge Clinical Impression: Anterior epistaxis, Coagulopathy, Elevated liver function tests, Encounter for removal of nasal packing, Elevated liver enzymes Disposition: Home, Self-Care Condition: (1) Good Instructions: Nosebleed (ED) Additional Instructions: Keep packing in place for another 1-2 days. When you have your packing removed, go to a facility such as [facility] equipped to handle complications of bleeding and coagulopathy. Follow up with your PCP Dr. Bonilla to arrange further evaluation of your liver functions. Limit use of tylenol to minimal or none due to it being processed through your liver. Take zofran if needed for nausea. Forms: Patient Portal Access Quality - Quality Measures Quality Measures: Headache (All Ages) - Headache: Neuroimaging Quality Measure: Measure #419: Overuse of Neuroimaging ICD10 Codes Entered: Yes Neurological Exam: Patient had a normal neurological exam. [G9535] Headache: Use of Neuroimaging: < CTA, CT, MRA or MRI was NOT ordered > [G9534] - Blood Pressure Screening Does Patient Have Any of the Following: No Blood Pressure Classification: Pre-Hypertensive BP Reading Systolic Measurement: 120 Diastolic Measurement: 56 Screening for High Blood Pressure: < Pre-Hypertensive BP, F/U Documented > [ G8950] Pre-Hypertensive Follow-up Interventions: Follow-up with rescreen every year.
[2018-04-02] MEDS ORDERED: ONDANSETRON 4 MG ODT TABLET SL ONE ×2 (21:02→22:42)
[2018-04-02 21:15] LABS: BASO % 0.6 % (0-6); EOS % 2.3 % (0-6); GRAN % 55.1 % (47-80); HEMATOCRIT 33.2 % (35.0-47.0); HEMOGLOBIN 10.3 gm/dl (11.6-16.0); LYMPH % 29.6 % (16-45); MEAN CELL VOLUME 95.7 fl (81-97); MONO % 12.4 % (0-9); PLATELET COUNT 141 K/uL (130-400); RED BLOOD COUNT 3.47 M/uL (3.80-5.40); RED CELL DISTRIBUTION WIDTH 14.9 % (11.5-14.5); WHITE BLOOD COUNT W/O DIFF 5.3 K/uL (4.2-12.2)
[2018-04-02 21:16] LABS: MEAN CORPUSCULAR HEMOGLOBIN 29.6 pg (27-33)
[2018-04-02 21:28] LABS: BLOOD UREA NITROGEN 10 mg/dL (8-23); CREATININE 0.6 mg/dL (0.5-0.9); EST GLOMERULAR FILTRATION RATE > 60 mL/min; INR 1.4; PARTIAL THROMBOPLASTIN TIME 30.6 SECONDS (24.5-39.1); PROTHROMBIN TIME (PATIENT) 14.3 SECONDS (9.5-12.1)
[2018-04-02 21:29] LABS: TOTAL PROTEIN 10.9 g/dL (6.6-8.7)
[2018-04-02 21:31] LABS: GLUCOSE,RANDOM 116 mg/dL (74-109)
[2018-04-02 21:34] LABS: ALB/GLOB RATIO 0.3 (1.1-1.8); ALBUMIN 2.3 g/dL (4.0-5.0); ALKALINE PHOSPHATASE 77 U/L (35-104); ALT/SGPT 160 U/L (<33); AST/SGOT 223 U/L (10.0-35.0)
[2018-04-02] MEDS ORDERED: ONDANSETRON HCL IV 4 MG/2 ML VIAL IVP ONE (22:56)
== END 2018-04-02 23:09 | disposition home or self-care (01) ==
LOC: ER 20:39
DX: R04.0 Epistaxis (principal); D68.9 Coagulation defect, unspecified; R94.5 Abnormal results of liver function studies; R11.0 Nausea; R51 Headache; I10 Essential (primary) hypertension
CPT/HCPCS: 99284 ×2; 96374; 85025; 85730; 85610; 80053; J2405

== ENCOUNTER 2018-04-05 01:13 | Observation (INO) | payer MEDICARE, BC ==
--- NOTE | 2018-04-05 01:28 | Emergency Department Record ---
History of Present Illness - General Chief Complaint: Chest Pain Stated Complaint: CHEST PAIN Source: Patient Mode of Arrival: Ambulatory Limitations: No limitations - History of Present Illness Initial Comments: 63 yo female presents with multiple concerns. She has had a throbbing headache since about noon. She has had some headache this week since being treated for a nose bleed and had a packing. No vision changes. No fever. She has had some dizziness as well. The onset was gradual. She developed a chest pressure this evening. The chest pain does radiate down the left arm at times. She has felt some shortness of breath. No pain with inspiration. She does feel a little short of breath with activity. No leg swelling or calf pain. No history of CAD personally. Her sister has atrial fibrillation. She has a history of fibromyalgia, polymalgia rheumatica, RA, OA. She has had elevated liver enzymes of unknown etiology for the last 2 years. She denies alcohol. She occasionally, rarely uses Tylenol. She states she had tests for hepatitis that were negative. She has not seen a GI specialist for the elevated liver enzymes. She has not seen a maintenance mechanic for several years. PCP is Dr Chad bello [place]. Complaint: Chest pain, Other -: Hour(s) Onset: Other Pain Location: Substernal Pain Radiation: None Severity: Moderate Quality: Heaviness Consistency: Constant Improves With: Nothing Worsens With: Movement Context: Other Anginal Symptoms: Dyspnea Treatments Prior to Arrival: None - Related Data Previous Rx's Medication Instructions Recorded Cephalexin [Keflex] 500 mg PO QID #27 cap 04/01/18 Allergies Allergy/AdvReac Type Severity Reaction Status Date / Time hydromorphone Allergy Unknown RAPID Verified 03/17/18 17:31 HEART RATE levofloxacin Allergy Unknown HIVES Verified 03/17/18 17:31 Sulfa (Sulfonamide Allergy Unknown RAPID Verified 03/17/18 17:31 Antibiotics) HEART RATE Iodinated Contrast- Oral and Allergy RASH Verified 03/17/18 17:31 IV Dye [Iodinated Contrast Media - Oral and] iodine Allergy RASH Verified 03/17/18 17:31 Review of Systems Constitutional: Denies: Chills, Fever, Malaise, Weakness Eyes: Denies: Eye discharge, Eye pain, Photophobia, Vision change ENT: Denies: Congestion, Ear pain, Throat pain Respiratory: Denies: Cough, Dyspnea, Hemoptysis, Stridor, Wheezes Cardiovascular: Reports: Chest pain, Dyspnea on exertion. Denies: Arrhythmia, Edema, Orthopnea, Palpitations, Paroxysmal nocturnal dyspnea, Rheumatic Fever, Syncope Endocrine: Denies: Fatigue Gastrointestinal: Denies: Abdominal pain, Diarrhea, Nausea, Vomiting Genitourinary: Denies: Dysuria, Hematuria, Urgency Musculoskeletal: Denies: Arthralgia, Back pain, Myalgia, Neck pain Neurological: Reports: Headache, Vertigo. Denies: Abnormal gait, Confusion, Numbness, Paresthesias, Seizure, Tingling, Tremors, Weakness Psychiatric: Denies: Anxiety Hematological/Lymphatic: Denies: Blood Clots, Easy bleeding, Easy bruising, Swollen glands Past Medical History - SOCIAL HISTORY Smoking Status: Never smoker Drug Use: None - RESPIRATORY Hx Respiratory Disorders: Yes Hx Asthma: Yes Hx Bronchitis: Yes - CARDIOVASCULAR Hx Cardio Disorders: Yes Hx Hypertension: Yes - NEURO Hx Neuro Disorders: Yes Hx Headaches: Yes (migraines) - GI Hx GI Disorders: Yes Hx Celiac Disease: Yes Hx Reflux: Yes Hx Hiatal Hernia: Yes (scope in June) - Hx Genitourinary Disorders: No - ENDOCRINE Hx Endocrine Disorders: No - MUSCULOSKELETAL Hx Musculoskeletal Disorders: Yes Hx Arthritis: Yes (rheumatoid) Hx Gout: Yes Comment:: Polymyalgia Rheumatica - PSYCH Hx Psych Problems: No - HEMATOLOGY/ONCOLOGY Hx Hematology/Oncology Disorders: No Family Medical History Hx Alcohol Use: Father Hx Cancer: Father Hx Dementia: Mother Hx Heart Disease: Mother, Brother/Sister Hx HTN: Brother/Sister Hx Stroke: Mother Physical Exam - General General Appearance: Alert, Oriented x3, Cooperative, No acute distress Limitations: No limitations - Head Head exam: Atraumatic, Normocephalic, Normal inspection - Eye Eye exam: Normal appearance, PERRL, EOMI. negative: Conjunctival injection, Nystagmus, Periorbital swelling, Periorbital tenderness, Scleral icterus - ENT ENT exam: Normal exam, Mucous membranes moist, Normal orophraynx Ear exam: Normal external inspection Nasal Exam: Normal inspection Mouth exam: Normal external inspection Teeth exam: Normal inspection Throat exam: Normal inspection - Neck Neck exam: Normal inspection, Full ROM. negative: Tenderness - Respiratory Respiratory exam: Normal lung sounds bilaterally. negative: Accessory muscle use, Chest wall tenderness, Decreased breath sounds, Prolonged expiratory, Respiratory distress, Rhonchi, Stridor, Wheezes - Cardiovascular Cardiovascular Exam: Regular rate, Normal rhythm, Normal heart sounds Peripheral Pulses: 2+: Radial (R), Radial (L) - GI/Abdominal GI/Abdominal exam: Soft. negative: Tenderness - Rectal Rectal exam: Deferred - exam: Deferred - Extremities Extremities exam: Normal inspection, Full ROM, Normal capillary refill. negative: Pedal edema, Tenderness - Back Back exam: Denies: CVA tenderness (R), CVA tenderness (L) - Neurological Neurological exam: Alert, CN II-XII intact, Normal gait, Oriented X3. negative : Altered, Motor sensory deficit - Psychiatric Psychiatric exam: Normal affect, Normal mood. negative: Agitated, Anxious, Flat affect - Skin Skin exam: Dry, Intact, Normal color, Warm Course - Reevaluation(s) Reevaluation #1: EKG #1: 0112 Rate: 82 Rhythm: Sinus [place]: Left Intervals: Normal ST segments: Normal Prior: 08/13/17 No changes. 04/05/18 01:19 04/05/18 01:58 CBC reviewed Hgb is 9.8 decreased from 10.3 04/05/18 02:07 The CMP was reviewed AST 252 ALT 168 TBili 1.3 Alk Phos was normal The transaminases are mildly enlarged from previous this past week She states she has been aware of elevated liver enzymes for about 2 years. No etiology as been diagnosed as the cause. Troponin is normal 04/05/18 02:18 The HCT is normal 04/05/18 02:24 04/05/18 06:53 ESR is 78 The case was discussed with Katie Phillips of the admission service for serial enzymes, cardiology consult for chest pain and arrange follow up with GI for the elevated transaminases Medical Decision Making - Lab Data Result diagrams: 04/05/18 01:34 04/05/18 01:34 Disposition Disposition: Admit Clinical Impression: Chest pain, Headache, Hyponatremia, Hypokalemia, Elevated liver enzymes, Anemia Disposition: Still a Patient at [facility] Decision to Admit: Admit from ER Decision to Admit Date: 04/05/18 Decision to Admit Time: 02:24 Condition: (1) Good Time of Disposition: 02:24 Quality - Quality Measures Quality Measures: N/A, Headache (All Ages) - Headache: Neuroimaging Quality Measure: Measure #419: Overuse of Neuroimaging ICD10 Codes Entered: Yes Neurological Exam: Patient had a normal neurological exam. [G9535] Headache: Use of Neuroimaging: CTA, CT, MRA or MRI Ordered w/Medical Reason [ G9536] Medical Reason for Exam: Change in Type of Headache - Blood Pressure Screening Does Patient Have Any of the Following: No Blood Pressure Classification: Pre-Hypertensive BP Reading Systolic Measurement: 150 Diastolic Measurement: 83 Screening for High Blood Pressure: < Pre-Hypertensive BP, F/U Documented > [ G8950] Pre-Hypertensive Follow-up Interventions: Referral to alternative/primary care provider.
[2018-04-05] MEDS ORDERED: ACETAMINOPHEN 1,000 MG/100 ML BTL IVPB ONE (01:29)
[2018-04-05] MEDS ORDERED: MORPHINE SULFATE 10 MG/ML VIAL IVP ONE (01:32)
[2018-04-05 01:49] LABS: INR 1.4; PARTIAL THROMBOPLASTIN TIME 30.2 SECONDS (24.5-39.1); PROTHROMBIN TIME (PATIENT) 14.3 SECONDS (9.5-12.1)
[2018-04-05 01:56] LABS: BLOOD UREA NITROGEN 14 mg/dL (8-23); CREATININE 0.5 mg/dL (0.5-0.9); EST GLOMERULAR FILTRATION RATE > 60 mL/min
[2018-04-05 01:57] LABS: TOTAL PROTEIN 10.9 g/dL (6.6-8.7)
[2018-04-05 01:59] LABS: GLUCOSE,RANDOM 98 mg/dL (74-109)
[2018-04-05 02:02] LABS: ALB/GLOB RATIO 0.3 (1.1-1.8); ALBUMIN 2.3 g/dL (4.0-5.0); ALKALINE PHOSPHATASE 96 U/L (35-104); ALT/SGPT 168 U/L (<33); AST/SGOT 252 U/L (10.0-35.0)
[2018-04-05] MEDS ORDERED: POTASSIUM CHLORIDE 20 MEQ TABLET PO ONE (02:05)
[2018-04-05] MEDS ORDERED: ONDANSETRON HCL IV 4 MG/2 ML VIAL IVP ONE (02:11)
[2018-04-05 04:41] LABS: HEMATOCRIT 30.7 % (35.0-47.0); HEMOGLOBIN 9.8 gm/dl (11.6-16.0); MEAN CELL VOLUME 96.2 fl (81-97); MEAN CORPUSCULAR HEMOGLOBIN 30.7 pg (27-33); MEAN CORPUSCULAR HGB CONC 31.9 g/dl (32-36); RED BLOOD COUNT 3.19 M/uL (3.80-5.40)
[2018-04-05 04:42] LABS: BASO % 0.4 % (0-6); EOS % 2.6 % (0-6); ERYTHROCYTE SEDIMENTATION RATE 78 mm/hr (0-30); GRAN % 46.3 % (47-80); LYMPH % 38.5 % (16-45); MEAN PLATELET VOLUME 9.7 fl (7.4-10.4); MONO % 12.2 % (0-9); PLATELET COUNT 136 K/uL (130-400); RED CELL DISTRIBUTION WIDTH 14.7 % (11.5-14.5)
[2018-04-05 08:22] LABS: ALB/GLOB RATIO 0.3 (1.1-1.8); ALKALINE PHOSPHATASE 74 U/L (35-104); ALT/SGPT 162 U/L (<33); AST/SGOT 229 U/L (10.0-35.0); BLOOD UREA NITROGEN 13 mg/dL (8-23); C-REACTIVE PROTEIN 0.66 mg/dL (<0.5); CREATININE 0.5 mg/dL (0.5-0.9); EST GLOMERULAR FILTRATION RATE > 60 mL/min; GLUCOSE,RANDOM 82 mg/dL (74-109); TOTAL PROTEIN 9.6 g/dL (6.6-8.7)
--- NOTE | 2018-04-05 10:01 | RADIOLOGY REPORT ---
EXAM: CHEST, TWO VIEWS HISTORY: DIFFICULTY BREATHING. TECHNIQUE: Frontal and lateral views of the chest were performed. FINDINGS: The heart size is normal. No pulmonary vascular congestion. No infiltrate or pleural effusion. Mild degenerative change of the thoracic spine. IMPRESSION: NO ACUTE DISEASE PROCESS. JOB NUMBER: [id number] MTDD
[2018-04-05] MEDS ORDERED: METHYLPREDNISOLONE PF 125MG/VIAL IVP ONE (10:30)
--- NOTE | 2018-04-05 10:30 | History & Physical ---
History of Present Illness - Date of Service Date of Service for History & Physical: 04/05/18 - History of Present Illness Admitting Diagnosis: chest pain, elevated liver enzymes, headache History of Present Illness: 63 year old female presented to ED with multiple complaints. She noted a new onset throbbing headache that started around noon. Patient reports having intermittent headaches since being treated with a nose bleed one week ago. Patient denies vision changes or fever but has noted dizziness. Patient also noted chest pressure that started last evening, with pain that radiated down her left arm. Patient also noted some intermittent shortness of breath. Denies any leg swelling, or history of CAD. Patient reports being bitten by a rattlesnake one month ago and wonders if that may be contributing to some of her symptoms. Patient's medical history inculdes fibromyalgia, polymalgia rheumatica, RA, OA, and elevated liver enzymes (known for 2 years). Patient was previously seeing a rail car loader but has not been able to see them in several years due to her insurance changing. She also reports that her PCP has been monitoring her liver enzymes, and noting them to continue to increase, but has not yet found a cause. Patient denies alcohol use, rare Tylenol use, and has tested negative for hepatitis. PCP: Dr. Bonilla ([place]) ED Course: EKG: rate 82, sinus rhythm, ST segment normal, no change from previous recording 08/13/17 Hgb 9.8, AST 252, ALT 168, Tbili 1.3, alk phos NML, ESR 78 Trop neg Chest x-ray negative Head CT neg 04/05/18: Patient A&O x 4, resting comfortably in bed. Patient reports headache has resolved after Morphine in ED but has continued throbbing of head. States chest pressure/pain is gone, no other symptoms at this time. Serial troponins ordered, negative so far. Cardiology consult pending, abd ultrasound ordered. Patient to follow-up with GI outpatient for elevated liver enzymes. Will trial solumedrol IVP for headache, as autoimmune cause may be contributing to symptoms due to elevated ESR and CRP. Travel Screening - Travel/Exposure Within Last 30 Days Have you traveled within the last 30 days?: No - Travel/Exposure Within Last Year Have you traveled outside the [place] in the last year?: No - Additonal Travel Details Have you been exposed to anyone with a communicable illness?: No - Travel Symptoms Symptom Screening: None Review of Systems Constitutional: Denies: Chills, Fever, Malaise, Weakness Eyes: Denies: Eye discharge, Eye pain, Photophobia, Vision change ENT: Denies: Congestion, Ear pain, Throat pain Respiratory: Denies: Cough, Dyspnea, Hemoptysis, Stridor, Wheezes Cardiovascular: Reports: Chest pain, Dyspnea on exertion. Denies: Arrhythmia, Edema, Orthopnea, Palpitations, Paroxysmal nocturnal dyspnea, Rheumatic Fever, Syncope Endocrine: Denies: Fatigue Gastrointestinal: Denies: Abdominal pain, Diarrhea, Nausea, Vomiting Genitourinary: Denies: Dysuria, Hematuria, Urgency Musculoskeletal: Denies: Arthralgia, Back pain, Myalgia, Neck pain Neurological: Reports: Headache, Vertigo. Denies: Abnormal gait, Confusion, Numbness, Paresthesias, Seizure, Tingling, Tremors, Weakness Psychiatric: Denies: Anxiety Hematological/Lymphatic: Denies: Blood Clots, Easy bleeding, Easy bruising, Swollen glands Past Medical History - SOCIAL HISTORY Smoking Status: Never smoker Drug Use: None - RESPIRATORY Hx Respiratory Disorders: Yes Hx Asthma: Yes Hx Bronchitis: Yes - CARDIOVASCULAR Hx Cardio Disorders: Yes Hx Hypertension: Yes - NEURO Hx Neuro Disorders: Yes Hx Headaches: Yes (migraines) - GI Hx GI Disorders: Yes Hx Celiac Disease: Yes Hx Reflux: Yes Hx Hiatal Hernia: Yes (scope in June) - Hx Genitourinary Disorders: No - ENDOCRINE Hx Endocrine Disorders: No - MUSCULOSKELETAL Hx Musculoskeletal Disorders: Yes Hx Arthritis: Yes (rheumatoid) Hx Gout: Yes Comment:: Polymyalgia Rheumatica - PSYCH Hx Psych Problems: No - HEMATOLOGY/ONCOLOGY Hx Hematology/Oncology Disorders: No Family Medical History Hx Alcohol Use: Father Hx Cancer: Father Hx Dementia: Mother Hx Heart Disease: Mother, Brother/Sister Hx HTN: Brother/Sister Hx Stroke: Mother H&P Meds/Allergies - Allergies Allergies: Allergies Allergy/AdvReac Type Severity Reaction Status Date / Time hydromorphone Allergy Unknown RAPID Verified 03/17/18 17:31 HEART RATE levofloxacin Allergy Unknown HIVES Verified 03/17/18 17:31 Sulfa (Sulfonamide Allergy Unknown RAPID Verified 03/17/18 17:31 Antibiotics) HEART RATE Iodinated Contrast- Oral and Allergy RASH Verified 03/17/18 17:31 IV Dye [Iodinated Contrast Media - Oral and] iodine Allergy RASH Verified 03/17/18 17:31 - Home Medications Previous Rx's Medication Instructions Recorded Cephalexin [Keflex] 500 mg PO QID #27 cap 04/01/18 - Active Medications Active Medications: Current Medications Methylprednisolone Sodium Succinate (Solu-Medrol) 60 mg IVP NOW [facility] Physical Exam - Vital Signs Vital Signs: Vital Signs - Last 24 Hrs Temp Pulse Pulse Pulse Resp BP Pulse Ox 04/05/18 08:00 98.1 F 80 16 106/70 95 04/05/18 03:30 76 04/05/18 03:00 98.4 F 71 20 150/83 95 04/05/18 02:48 70 16 121/57 04/05/18 01:29 97.9 F 76 20 168/69 100 - General General Appearance: Alert, Oriented x3, Cooperative, No acute distress Limitations: No limitations - Head Head exam: Atraumatic, Normocephalic, Normal inspection - Eye Eye exam: Normal appearance, PERRL, EOMI. negative: Conjunctival injection, Nystagmus, Periorbital swelling, Periorbital tenderness, Scleral icterus - ENT ENT exam: Normal exam, Mucous membranes moist, Normal orophraynx Ear exam: Normal external inspection Nasal Exam: Normal inspection Mouth exam: Normal external inspection Teeth exam: Normal inspection Throat exam: Normal inspection - Neck Neck exam: Normal inspection, Full ROM. negative: Tenderness - Respiratory Respiratory exam: Normal lung sounds bilaterally. negative: Accessory muscle use, Chest wall tenderness, Decreased breath sounds, Prolonged expiratory, Respiratory distress, Rhonchi, Stridor, Wheezes - Cardiovascular Cardiovascular Exam: Regular rate, Normal rhythm, Normal heart sounds Peripheral Pulses: 2+: Radial (R), Radial (L) - GI/Abdominal GI/Abdominal exam: Soft. negative: Tenderness - Rectal Rectal exam: Deferred - exam: Deferred - Extremities Extremities exam: Normal inspection, Full ROM, Normal capillary refill, Other ( scab from rattlesnack bite noted on left interior calf. No signs of infection.) . negative: Pedal edema, Tenderness - Back Back exam: Denies: CVA tenderness (R), CVA tenderness (L) - Neurological Neurological exam: Alert, Normal gait, Oriented X3. negative: Altered, Motor sensory deficit - Psychiatric Psychiatric exam: Normal affect, Normal mood. negative: Agitated, Anxious, Flat affect - Skin Skin exam: Dry, Intact, Normal color, Warm Results - Labs Result Diagrams: 04/05/18 01:34 04/05/18 07:50 Labs Last 24 Hours: Laboratory Results - last 24 hr 04/05/18 04/05/18 04/05/18 01:20 01:34 01:34 WBC 5.0 5.0 RBC 3.19 L 3.19 L Hgb 9.8 L 9.8 L Hct 30.7 L 30.7 L MCV 96.2 96.2 MCH 30.7 30.7 MCHC 31.9 L 31.9 L RDW 14.7 H 14.7 H Plt Count 136 136 MPV 9.7 9.7 Gran % 46.3 L 46.3 L Lymphocytes % 38.5 38.5 Monocytes % 12.2 H 12.2 H Eosinophils % 2.6 2.6 Basophils % 0.4 0.4 ESR 78 H PT 14.3 H INR 1.4 APTT 30.2 Sodium Potassium Chloride Carbon Dioxide Anion Gap BUN Creatinine Estimated GFR Random Glucose Calcium Total Bilirubin AST ALT Alkaline Phosphatase Troponin T C-Reactive Protein Total Protein Albumin Globulin Albumin/Globulin Ratio 04/05/18 04/05/18 04/05/18 01:34 07:50 07:50 WBC RBC Hgb Hct MCV MCH MCHC RDW Plt Count MPV Gran % Lymphocytes % Monocytes % Eosinophils % Basophils % ESR PT INR APTT Sodium 130 L 129 L Potassium 3.3 L 4.0 Chloride 99 99 Carbon Dioxide 27.0 25.0 Anion Gap 4.0 L 5.0 L BUN 14 13 Creatinine 0.5 0.5 Estimated GFR > 60 > 60 Random Glucose 98 82 Calcium 8.2 L 8.0 L Total Bilirubin 1.30 H 1.40 H AST 252 H 229 H ALT 168 H 162 H Alkaline Phosphatase 96 74 Troponin T < 0.010 < 0.010 C-Reactive Protein 0.66 H Total Protein 10.9 H 9.6 H Albumin 2.3 L 2.0 L Globulin 8.6 H 7.6 H Albumin/Globulin Ratio 0.3 L 0.3 L VTE H&P Assessment - Risk for VTE Risk for VTE: Yes Risk Level: Moderate Risk Assessment Date: 04/05/18 Risk Assessment Time: 10:42 VTE Orders Placed or Will Be Placed: Yes Plan - Detailed Diagnosis and Plan (1) Chest pain Current Visit: Yes Status: Acute Base Code: R07.9 - CHEST PAIN, UNSPECIFIED Comment: 04/05/18: 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 Asymptomatic since admission - Serial troponins ordered, negative x 2 so far - sec reporting consultant - EKG unchanged from previous, no acute abnormalities seen - Cardiology consult pending (2) Headache Current Visit: Yes Status: Acute Base Code: R51 - HEADACHE Comment: : Patient complains of headache and throbbing sensation in posterior scalp. Received 2mg Morphine in ED which relieved the pain, patient has continued throbbing. States she took Tylenol and Motrin GUEST LAUNDRY ATTENDANT with minimal relief -Head CT negative -ESR 78, crp 0.66 -Solumedrol 60mg IVP, possible autoimmune cause of symptoms due to history of polymyalgia rheumatica and elevated ESR and CRP. Will recommend patient to follow-up with rail car loader upon DC (3) Elevated liver enzymes Current Visit: Yes Status: Acute Base Code: R74.8 - ABNORMAL LEVELS OF OTHER SERUM ENZYMES Comment: 04/05/18: -AST 252, ALT 168. -History of elevated liver enzymes x 2 years, however these are significantly more elevated than previous. -Patient reports being worked up by PCP, negative hepatitis, no alcohol use, no tylenol use. -Abd ultrasound ordered -GI consult to be followed up with outpatient (4) DVT prophylaxis Current Visit: Yes Status: Acute Base Code: [id number] - Comment: 04/05/18: Patient moderate risk due to age and hospitalization -Lovenox 40mg SQ daily while admitted (5) Full code status Current Visit: No Status: Acute Base Code: Z78.9 - OTHER SPECIFIED HEALTH STATUS Comment: 04/05/18: Full code this admission
--- NOTE | 2018-04-05 12:19 | CT SCAN REPORT ---
EXAM: CT OF THE BRAIN WITHOUT CONTRAST HISTORY: DIZZINESS. TECHNIQUE: Sequential axial images were obtained from the foramen magnum to the vertex without contrast administration. FINDINGS: The brain volume is normal. No large territorial infarct, hemorrhage , mass effect or midline shift. No extraaxial fluid collection. The orbits and paranasal sinuses appear normal. There is mild polyposis present. No depressed skull fracture. IMPRESSION: NO ACUTE INTRACRANIAL ABNORMALITY IS APPRECIATED. JOB NUMBER: [id number] [facility]
--- NOTE | 2018-04-05 12:23 | ULTRASOUND REPORT ---
EXAM: ULTRASOUND OF THE ABDOMEN HISTORY: ABDOMINAL PAIN. TECHNIQUE: Sonographic evaluation of the abdomen was performed using hartley scale imaging. FINDINGS: The liver is coarsened in echotexture. The gallbladder is surgically absent. No ductal dilatation. The common bile duct measures 4 mm. The pancreas and spleen appear normal. The kidneys are normal in size with no hydronephrosis. There is a benign appearing cyst in the right kidney measuring 1.6 cm. The abdominal aorta and inferior vena cava are patent. IMPRESSION: 1. COARSENED LIVER ECHOTEXTURE. NO FOCAL HEPATIC MASS. 2. THE GALLBLADDER IS SURGICALLY ABSENT. NO DUCTAL DILATATION. 3. BENIGN APPEARING CYST RIGHT KIDNEY MEASURING 1.6 CM. JOB NUMBER: [id number] [facility]
--- NOTE | 2018-04-05 15:30 | Discharge Summary ---
Providers Discharge Summary Date: 04/05/18 Date of admission: 04/05/18 02:50 Expected Date of Discharge: 04/05/18 Attending physician: MARY CUELLO Primary care physician: Chad Monzon) Consults: Consult Orders 04/05/18 02:52 Consult - Cardiology NOW Consulting Provider: NANCY PADILLA Physician Instructions: Reason For Exam: chest pain Does pt have current clinical provider trainer?: Not Established Consult NOW Consulting Provider: VANITA ZALDIVAR Physician Instructions: Reason For Exam: elevated liver enzymes Physical Exam - Vital Signs Vital Signs: Vital Signs - Last 24 Hrs Temp Pulse Pulse Pulse Resp BP Pulse Ox 04/05/18 12:00 98.2 F 80 16 143/72 94 L 04/05/18 08:10 76 72 16 04/05/18 08:00 98.1 F 80 16 106/70 95 04/05/18 03:30 76 04/05/18 03:00 98.4 F 71 20 150/83 95 04/05/18 02:48 70 16 121/57 04/05/18 01:29 97.9 F 76 20 168/69 100 - General General Appearance: Alert, Oriented x3, Cooperative, No acute distress Limitations: No limitations - Head Head exam: Atraumatic, Normocephalic, Normal inspection - Eye Eye exam: Normal appearance, PERRL, EOMI. negative: Conjunctival injection, Nystagmus, Periorbital swelling, Periorbital tenderness, Scleral icterus - ENT ENT exam: Normal exam, Mucous membranes moist, Normal orophraynx Ear exam: Normal external inspection Nasal Exam: Normal inspection Mouth exam: Normal external inspection Teeth exam: Normal inspection Throat exam: Normal inspection - Neck Neck exam: Normal inspection, Full ROM. negative: Tenderness - Respiratory Respiratory exam: Normal lung sounds bilaterally. negative: Accessory muscle use, Chest wall tenderness, Decreased breath sounds, Prolonged expiratory, Respiratory distress, Rhonchi, Stridor, Wheezes - Cardiovascular Cardiovascular Exam: Regular rate, Normal rhythm, Normal heart sounds Peripheral Pulses: 2+: Radial (R), Radial (L), Dorsalis Pedis (R), Dorsalis Pedis (L) - GI/Abdominal GI/Abdominal exam: Soft. negative: Tenderness - Rectal Rectal exam: Deferred - exam: Deferred - Extremities Extremities exam: Normal inspection, Full ROM, Normal capillary refill, Other ( scab from rattlesnack bite noted on left interior calf. No signs of infection.) . negative: Pedal edema, Tenderness - Back Back exam: Denies: CVA tenderness (R), CVA tenderness (L) - Neurological Neurological exam: Alert, Normal gait, Oriented X3. negative: Altered, Motor sensory deficit - Psychiatric Psychiatric exam: Normal affect, Normal mood. 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 Received 2mg Morphine in ED which relieved the pain, patient has continued throbbing. States she took Tylenol and Motrin TRUST ADMINISTRATIVE ASSISTANT with minimal relief -Head CT negative -ESR 78, crp 0.66 -Solumedrol 60mg IVP, possible autoimmune cause of symptoms due to history of polymyalgia rheumatica and elevated ESR and CRP. Will recommend patient to follow-up with paving contractor upon DC as headache has improved with Solulmedrol. Will not send home with prednisone as patient reports systemic rash from PO prednisone (3) Elevated liver enzymes Current Visit: Yes Status: Acute Base Code: R74.8 - ABNORMAL LEVELS OF OTHER SERUM ENZYMES Comment: 04/05/18: -AST 252, ALT 168. -History of elevated liver enzymes x 2 years, however these are significantly more elevated than previous. -Patient reports being worked up by PCP, negative hepatitis, no alcohol use, no tylenol use. -Abd ultrasound: coarsened liver echotexture, no hepatic mass, benign cyst on right kidney. Findings discussed with patient. -GI consult to be followed up with outpatient - scheduled for Thursday with Dr. Fernandes (4) DVT prophylaxis Current Visit: Yes Status: Acute Base Code: [id number] - Comment: 04/05/18: Patient moderate risk due to age and hospitalization -Lovenox 40mg SQ daily while admitted, no need to continue on discharge due to patient resuming normal activity (5) Full code status Current Visit: No Status: Acute Base Code: Z78.9 - OTHER SPECIFIED HEALTH STATUS Comment: 04/05/18: Full code this admission - Hospitalization Course Disposition: Home, Self-Care Hospital Course: 63 year old female presented to ED with multiple complaints. She noted a new onset throbbing headache that started around noon. Patient reports having intermittent headaches since being treated with a nose bleed one week ago. Patient denies vision changes or fever but has noted dizziness. Patient also noted chest pressure that started last evening, with pain that radiated down her left arm. Patient also noted some intermittent shortness of breath. Denies any leg swelling, or history of CAD. Patient reports being bitten by a rattlesnake one month ago and wonders if that may be contributing to some of her symptoms. Patient's medical history inculdes fibromyalgia, polymalgia rheumatica, RA, OA, and elevated liver enzymes (known for 2 years). Patient was previously seeing a paving contractor but has not been able to see them in several years due to her insurance changing. She also reports that her PCP has been monitoring her liver enzymes, and noting them to continue to increase, but has not yet found a cause. Patient denies alcohol use, rare Tylenol use, and has tested negative for hepatitis. PCP: Dr. Bonilla ([place]) ED Course: EKG: rate 82, sinus rhythm, ST segment normal, no change from previous recording 08/13/17 Hgb 9.8, AST 252, ALT 168, Tbili 1.3, alk phos NML, ESR 78 Trop neg Chest x-ray negative Head CT neg 04/05/18: Patient A&O x 4, resting comfortably in bed. Patient reports headache has resolved after Morphine in ED but has continued throbbing of head. States chest pressure/pain is gone, no other symptoms at this time. Serial troponins ordered, negative so far. Cardiology consult pending, abd ultrasound ordered. Patient to follow-up with GI outpatient for elevated liver enzymes. Will trial solumedrol IVP for headache, as autoimmune cause may be contributing to symptoms due to elevated ESR and CRP. Update: No further episodes of chest pain or left arm pain since admission. No cardiac arrhythmias noted on gambling monitor, serial troponins negative. Headache has improved with solumedrol, patient to follow-up with PCP and possibly rheumatology on dc. Abd ultrasound indicates coarsened liver echotexture, no reports of alcohol use or excessive acetaminophen use. Discussed findings with patient, scheduled to follow-up with Dr. Fernandes on Thursday. Cardiology consult, scheduling patient for outpatient exercise stress test. Procedures: Imaging and X-Rays 04/05/18 01:28 CHEST 2 VIEWS [RAD] Stat HEAD WO CONTRAST [CT] Stat 04/05/18 02:52 ABDOMEN, COMPLETE [US] Stat Cardiology Procedures 04/05/18 02:16 EKG NOW 04/05/18 02:52 Room Attendants .Continuous EKG QDX2@0600 Abnormal Labs: Abnormal Lab Results 04/05/18 04/05/18 04/05/18 Range/Units 01:20 01:34 01:34 RBC 3.19 L 3.19 L (3.80-5.40) M/uL Hgb 9.8 L 9.8 L (11.6-16.0) gm/dl Hct 30.7 L 30.7 L (35.0-47.0) % MCHC 31.9 L 31.9 L (32-36) g/dl RDW 14.7 H 14.7 H (11.5-14.5) % Gran % 46.3 L 46.3 L (47-80) % Monocytes % 12.2 H 12.2 H (0-9) % ESR 78 H (0-30) mm/hr PT 14.3 H (9.5-12.1) SECONDS Sodium (136-145) mmol/L Potassium (3.4-4.5) mmol/L Anion Gap (7-16) Calcium (8.8-10.2) mg/dL Total Bilirubin (0.2-1.0) mg/dL AST (10.0-35.0) U/L ALT (<33) U/L C-Reactive Protein (<0.5) mg/dL Total Protein (6.6-8.7) g/dL Albumin (4.0-5.0) g/dL Globulin (1.4-4.8) gm/dL Albumin/Globulin Ratio (1.1-1.8) 04/05/18 04/05/18 Range/Units 01:34 07:50 RBC (3.80-5.40) M/uL Hgb (11.6-16.0) gm/dl Hct (35.0-47.0) % MCHC (32-36) g/dl RDW (11.5-14.5) % Gran % (47-80) % Monocytes % (0-9) % ESR (0-30) mm/hr PT (9.5-12.1) SECONDS Sodium 130 L 129 L (136-145) mmol/L Potassium 3.3 L (3.4-4.5) mmol/L Anion Gap 4.0 L 5.0 L (7-16) Calcium 8.2 L 8.0 L (8.8-10.2) mg/dL Total Bilirubin 1.30 H 1.40 H (0.2-1.0) mg/dL AST 252 H 229 H (10.0-35.0) U/L ALT 168 H 162 H (<33) U/L C-Reactive Protein 0.66 H (<0.5) mg/dL Total Protein 10.9 H 9.6 H (6.6-8.7) g/dL Albumin 2.3 L 2.0 L (4.0-5.0) g/dL Globulin 8.6 H 7.6 H (1.4-4.8) gm/dL Albumin/Globulin Ratio 0.3 L 0.3 L (1.1-1.8) Condition at Discharge: (1) Good VTE Discharge VTE Reason For No Overlap Therapy: Not Indicated Discharge Medications - Discharge Medications Home Medications: Ambulatory Orders Albuterol Sulfate [Proair Hfa] 1 - 2 puff IH .EVERY 4-6 HOURS PRN 03/17/18 [ Last Taken 03/10/18] Cephalexin [Keflex] 500 mg PO QID #27 cap 04/01/18 [Last Taken Unknown] Discharge Plan - Discharge Instructions Activity at Discharge: Increase Activity as Tolerated Diet at Discharge: Regular Diet Additional Instructions: Follow up with Dr. Perry at [facility] on Thursday, 04/09 at 2: 30pm. Time may change, office will call. Follow up for stress test with [facility] as scheduled Follow-up with PCP in 1-2 weeks to further evaluate headaches for possible autoimmune cause, may need to begin seeing Rheumatology again. Quality Measures - Quality Measures Quality Measures: Documentation of Current Medications in Medical Record, Screening for High Blood Pressure and F/U Documented - Current Medications Quality Measure: Measure #130: Documentation of Current Medications Documentation of Current Medications: <Current Medications Documented/Reviewed> [[id number]] - Blood Pressure Screening Quality Measure: Screening for High Blood Pressure and Follow-Up Documented Does Patient Have Any of the Following: No Blood Pressure Classification: Hypertensive Reading Systolic Measurement: 143 Diastolic Measurement: 72 Screening for High Blood Pressure: < First Hypertensive BP, F/U Documented > [ G8950] First Hypertensive Follow-up Interventions: Referral to alternative/primary care provider. - Elder Abuse Suspicion Index EASI Reference Information: Ha RODRIGUEZ, Destinee C, Cyndy Montoya, Jade Greer.Development and validation of a tool to assist physicians identification of elder abuse: The Elder Abuse Suspicion Index (EASI ). Journal of Elder Abuse and Neglect, 2008; 20 (3): 276-300.
[2018-04-05 17:22] LABS: BASO % 0.5 % (0-6); GRAN % 43.6 % (47-80); HEMATOCRIT 28.8 % (35.0-47.0); HEMOGLOBIN 9.2 gm/dl (11.6-16.0); LYMPH % 39.5 % (16-45); MEAN CELL VOLUME 97.3 fl (81-97); MEAN CORPUSCULAR HGB CONC 31.9 g/dl (32-36); MEAN PLATELET VOLUME 10.5 fl (7.4-10.4); MONO % 13.4 % (0-9); PLATELET COUNT 124 K/uL (130-400); RED BLOOD COUNT 2.96 M/uL (3.80-5.40); RED CELL DISTRIBUTION WIDTH 14.9 % (11.5-14.5); WHITE BLOOD COUNT W/O DIFF 4.3 K/uL (4.2-12.2)
--- NOTE | 2018-04-06 20:19 | Cardiology Consult ---
DATE OF CONSULTATION: 04/05/2018 REASON FOR CONSULT: CHEST PAIN. HISTORY OF PRESENT ILLNESS: This is a pleasant 63-year-old female who presented to the Emergency Department with multiple complaints. She had been dizzy all day on 04/04/18 and then stated she had a throbbing headache, which started in the back of her head and moved forward going into her chest wall and down her left arm. The patient stated she recently had a significant nose bleed that had to be packed. She denies any recent outpatient chest pain prior to yesterday, no increased dyspnea, lightheadedness, lower extremity swelling, or palpitations. The patient does note that she was bitten by a rattle snake approximately one month ago. She denies any previous history of coronary artery disease. She does state her sister has a history of coronary artery disease and is in her 70's and unsure when this developed and that her mother had a history of heart disease in her elder years. Patient is currently chest pain free. PAST MEDICAL HISTORY: The patient's past medical history includes fibromyalgia , polyarthralgia, rheumatoid arthritis, osteoarthritis, elevated liver enzymes. PHYSICAL EXAMINATION: GENERAL: Alert and oriented x4, in no acute distress. VITAL SIGNS: Blood pressure 106/70. Pulse 80. Respirations 16. She is afebrile. Pulse ox is 95% on room air. HEENT: Normocephalic, atraumatic. Extraocular movements are intact. Pupils are equal and round. NECK: Supple without lymphadenopathy, thyromegaly, or bruits. CARDIAC: Regular rate and rhythm. No significant murmur was appreciated. LUNGS: Clear to auscultation in all lung james without rales, rhonchi, or wheeze. ABDOMEN: Soft, nontender. Bowel sounds present in all four quadrants. EXTREMITIES: No edema. 2+ pulses bilaterally. REVIEW OF SYSTEMS: CONSTITUTIONAL; Denies any recent fever, chills, or weakness. Eyes; Denies any change in vision. Ears; No change in hearing. ENT; Denies any congestion, ear pain, throat, pain or difficulty swallowing. Respiratory; Denies any cough, shortness of breath, hemoptysis, or wheeze. Cardiovascular; Positive for chest pain. Denies any palpitations, syncope. Endocrine; Denies polydipsia. Gastrointestinal; Denies abdominal pain, diarrhea , nausea or vomiting. Genitourinary; Denies dysuria or hematuria. Musculoskeletal; Denies any new arthralgia or back pain. Neurological; Positive for headache. Psychiatric; Denies anxiety. Hematological/Lymphatic; Denies history of blood clots, easy bleeding, or easy bruising. SOCIAL HISTORY: Denies tobacco abuse. Denies alcohol use. Denies illicit drug use. FAMILY HISTORY: Father had cancer. Mother had dementia and CAD. Sister had CAD and hypertension. ALLERGIES LISTED: HYDROMORPHONE. LEVOFLOXACIN. SULFA. IV DYE. HOME MEDICATIONS: Keflex. CURRENT MEDICATIONS: Solu-Medrol. LABORATORY: Laboratories demonstrated WBC of 5.0. Hemoglobin 9.8. Hematocrit 30.7. Platelet count 136. Sodium 129. Potassium 4.0. Chloride 99. CO2 25. BUN 13. Creatinine 0.5. Glucose 82. Troponins negative x2. CRP 0.66. Albumin 2.0. ASSESSMENT/PLAN: CHEST PAIN: This is atypical, as the pain started in the back of her head radiating to her chest and left arm. EKGs demonstrated sinus rhythm at a rate of 82 beats per minute with no acute changes. Patient may be discharged home today and follow-up for a basic Charles protocol treadmill stress test to assess for possible underlying ischemia contributing to her symptoms. We will plan to follow-up with the patient after stress testing. Further recommendations at that time. Thank you for the opportunity to participate in this patient's care. JOB NUMBER: [id number] MTDD
== END 2018-04-05 17:30 | disposition home or self-care (01) ==
LOC: ER 01:13 → MEDSURG 02:50
PROVIDERS: ADMIT Internal Medicine; ATTEND Internal Medicine
DX: R07.9 Chest pain, unspecified (principal); R51 Headache; E87.1 Hypo-osmolality and hyponatremia; E87.6 Hypokalemia; D64.9 Anemia, unspecified; R74.8 Abnormal levels of other serum enzymes; R42 Dizziness and giddiness; M35.3 Polymyalgia rheumatica; M79.7 Fibromyalgia; K90.0 Celiac disease
CPT/HCPCS: 85025; 85651; 85730; 85610; 86140; 80053; 84484; 71046; 76700; 70450; 93005 ×2; 93010 ×2; 90686; G0378; J2405; J2270; 99220; 99285; J2930

== ENCOUNTER 2018-04-10 18:51 | Emergency (ER) | payer MEDICARE, BC ==
[2018-04-10] MEDS ORDERED: LIDOCAINE VISC 2% 200MG/10ML UD MM ONE (19:05)
[2018-04-10] MEDS ORDERED: TOPICAL LIDOCAINE W/ EPI 5 ML TOP ONE (19:17)
[2018-04-10 19:35] LABS: BASO % 0.5 % (0-6); GRAN % 51.2 % (47-80); HEMATOCRIT 31.8 % (35.0-47.0); HEMOGLOBIN 9.9 gm/dl (11.6-16.0); MEAN CELL VOLUME 96.7 fl (81-97); MEAN CORPUSCULAR HGB CONC 31.1 g/dl (32-36); MEAN PLATELET VOLUME 9.3 fl (7.4-10.4); MONO % 10.3 % (0-9); PLATELET COUNT 157 K/uL (130-400); RED BLOOD COUNT 3.29 M/uL (3.80-5.40); WHITE BLOOD COUNT W/O DIFF 4.3 K/uL (4.2-12.2)
[2018-04-10 19:43] LABS: BLOOD UREA NITROGEN 13 mg/dL (8-23); CREATININE 0.6 mg/dL (0.5-0.9); EST GLOMERULAR FILTRATION RATE > 60 mL/min
[2018-04-10 19:44] LABS: TOTAL PROTEIN 10.2 g/dL (6.6-8.7)
[2018-04-10 19:46] LABS: GLUCOSE,RANDOM 149 mg/dL (74-109)
[2018-04-10 19:47] LABS: INR 1.3; PARTIAL THROMBOPLASTIN TIME 28.6 SECONDS (24.5-39.1); PROTHROMBIN TIME (PATIENT) 13.4 SECONDS (9.5-12.1)
[2018-04-10 19:48] LABS: ALT/SGPT 98 U/L (<33)
[2018-04-10 19:49] LABS: ALB/GLOB RATIO 0.3 (1.1-1.8); ALBUMIN 2.4 g/dL (4.0-5.0); ALKALINE PHOSPHATASE 89 U/L (35-104); AST/SGOT 127 U/L (10.0-35.0)
[2018-04-10] MEDS ORDERED: MORPHINE SULFATE 10 MG/ML VIAL IVP ONE ×2 (19:49→21:18)
--- NOTE | 2018-04-10 19:51 | Emergency Department Record ---
History of Present Illness - General Chief complaint: Nosebleed/epistaxis Stated complaint: NOSE BLEED Time Seen by Provider: 04/10/18 18:54 Source: Patient, Family Mode of Arrival: Ambulatory Limitations: No limitations - History of Present Illness Initial comments: pt has a nosebleed. she had one last week and had her nose packed and then f/u w ent who cauterized it again. it is now bleeding again. she called ent but they have not called back MD complaint: Epistaxis Onset/Timin -: Minutes(s) Severity: Mild Consistency: Getting worse Improves with: Pressure Worsens with: None Context-Epistaxis: History of similar - Related Data Home Medications Medication Instructions Recorded Confirmed Last Taken Phytonadione (Vit K1) [Vitamin K] 100 mcg PO DAILY 04/10/18 04/10/18 Unknown Previous Rx's Medication Instructions Recorded Amoxicillin/Potassium Clav 1 each PO BID #14 tablet 04/10/18 [Augmentin 875Mg/125Mg] Hydrocodone/Acetaminophen [Erie 1 each PO Q6HR #9 tablet 04/10/18 5-325 Tablet] Allergies Allergy/AdvReac Type Severity Reaction Status Date / Time hydromorphone Allergy Unknown RAPID Verified 04/10/18 19:04 HEART RATE levofloxacin Allergy Unknown HIVES Verified 04/10/18 19:04 Sulfa (Sulfonamide Allergy Unknown RAPID Verified 04/10/18 19:04 Antibiotics) HEART RATE Iodinated Contrast- Oral and Allergy RASH Verified 04/10/18 19:04 IV Dye [Iodinated Contrast Media - Oral and] iodine Allergy RASH Verified 04/10/18 19:04 Travel Screening - Travel/Exposure Within Last 30 Days Have you traveled within the last 30 days?: No Review of Systems Reviewed: No additional complaints except as noted below Constitutional: Reports: As per HPI. Denies: Chills, Fever, Malaise, Night sweats, Weakness, Weight change Eyes: Reports: As per HPI. Denies: Eye discharge, Eye pain, Photophobia, Vision change ENT: Reports: As per HPI, Epistaxis. Denies: Congestion, Dental pain, Ear pain , Hearing loss, Throat pain Respiratory: Reports: As per HPI. Denies: Cough, Dyspnea, Hemoptysis, Stridor, Wheezes Cardiovascular: Reports: As per HPI. Denies: Arrhythmia, Chest pain, Dyspnea on exertion, Edema, Murmurs, Orthopnea, Palpitations, Paroxysmal nocturnal dyspnea, Rheumatic Fever, Syncope Endocrine: Reports: As per HPI. Denies: Fatigue, Heat or cold intolerance, Polydipsia, Polyuria Gastrointestinal: Reports: As per HPI. Denies: Abdominal pain, Constipation, Diarrhea, Hematemesis, Hematochezia, Melena, Nausea, Vomiting Genitourinary: Reports: As per HPI. Denies: Abnormal menses, Discharge, Dyspareunia, Dysuria, Frequency, Hematuria, Incontinence, Retention, Urgency Musculoskeletal: Reports: As per HPI. Denies: Arthralgia, Back pain, Gout, Joint swelling, Myalgia, Neck pain Skin: Reports: As per HPI. Denies: Bruising, Change in color, Change in hair/ nails, Lesions, Pruritus, Rash Neurological: Reports: As per HPI. Denies: Abnormal gait, Confusion, Headache, Numbness, Paresthesias, Seizure, Tingling, Tremors, Vertigo, Weakness Psychiatric: Reports: As per HPI. Denies: Anxiety, Auditory hallucinations, Depression, Homicidal thoughts, Suicidal thoughts, Visual hallucinations Hematological/Lymphatic: Reports: As per HPI. Denies: Anemia, Blood Clots, Easy bleeding, Easy bruising, Swollen glands Past Medical History - SOCIAL HISTORY Smoking Status: Never smoker Alcohol Use: None Drug Use: None - RESPIRATORY Hx Respiratory Disorders: Yes Hx Asthma: Yes Hx Bronchitis: Yes - CARDIOVASCULAR Hx Cardio Disorders: Yes Hx Hypertension: Yes - NEURO Hx Neuro Disorders: Yes Hx Headaches: Yes (migraines) - GI Hx GI Disorders: Yes Hx Celiac Disease: Yes Hx Reflux: Yes Hx Hiatal Hernia: Yes (scope in June) - Hx Genitourinary Disorders: Yes Hx Kidney Stones: Yes - ENDOCRINE Hx Endocrine Disorders: No - MUSCULOSKELETAL Hx Musculoskeletal Disorders: Yes Hx Arthritis: Yes (rheumatoid) Hx Gout: Yes Comment:: Polymyalgia Rheumatica - PSYCH Hx Psych Problems: No - HEMATOLOGY/ONCOLOGY Hx Hematology/Oncology Disorders: No Family Medical History Any Significant Family History?: Yes Hx Alcohol Use: Father Hx Cancer: Father Hx Dementia: Mother Hx Heart Disease: Mother, Brother/Sister Hx HTN: Brother/Sister Hx Stroke: Mother Physical Exam - General General Appearance: Alert, Oriented x3, Cooperative, Mild distress - Head Head exam: Normal inspection - Eye Eye exam: Normal appearance, PERRL, EOMI Pupils: Normal accommodation - ENT ENT exam: Normal exam, Mucous membranes moist, Normal external ear exam, Normal orophraynx, TM's normal bilaterally Ear exam: Normal external inspection. negative: External canal tenderness Nasal Exam: Active bleeding, Dried blood. negative: Discharge, Sinus tenderness Mouth exam: Normal external inspection, Tongue normal Teeth exam: Normal inspection. negative: Dental caries Throat exam: Normal inspection. negative: Tonsillar erythema, Tonsillar exudate - Neck Neck exam: Normal inspection, Full ROM. negative: Tenderness - Respiratory Respiratory exam: Normal lung sounds bilaterally. negative: Respiratory distress - Cardiovascular Cardiovascular Exam: Normal rhythm, Normal heart sounds, Tachycardia - GI/Abdominal GI/Abdominal exam: Soft, Normal bowel sounds. negative: Tenderness - Rectal Rectal exam: Deferred - exam: Deferred - Extremities Extremities exam: Normal inspection, Full ROM, Normal capillary refill. negative: Tenderness - Back Back exam: Reports: Normal inspection, Full ROM. Denies: Muscle spasm, Rash noted, Tenderness - Neurological Neurological exam: Alert, CN II-XII intact, Normal gait, Oriented X3 - Psychiatric Psychiatric exam: Normal affect, Normal mood - Skin Skin exam: Dry, Intact, Normal color, Warm Course Vital Signs 04/10/18 18:58 Pulse Rate 123 H Respiratory 22 Rate Blood Pressure 180/81 Pulse Ox 98 - Reevaluation(s) Reevaluation #1: 04/10/18 21:24 viscous lido and cotton balls placed w pressure, still bleeding, then cotton balls with tle and pressure, bleeding slowed, then rhino rockets placed bilaterally. bleeding now controlled. Medical Decision Making - Lab Data Result diagrams: 04/10/18 19:25 04/10/18 19:25 Lab Results 04/10/18 04/10/18 04/10/18 Range/Units 19:25 19:25 19:25 WBC 4.3 (4.2-12.2) K/uL RBC 3.29 L (3.80-5.40) M/uL Hgb 9.9 L (11.6-16.0) gm/dl Hct 31.8 L (35.0-47.0) % MCV 96.7 (81-97) fl MCH 30.0 (27-33) pg MCHC 31.1 L (32-36) g/dl RDW 15.0 H (11.5-14.5) % Plt Count 157 (130-400) K/uL MPV 9.3 (7.4-10.4) fl Gran % 51.2 (47-80) % Lymphocytes % 35.0 (16-45) % Monocytes % 10.3 H (0-9) % Eosinophils % 3.0 (0-6) % Basophils % 0.5 (0-6) % PT 13.4 H (9.5-12.1) SECONDS INR 1.3 APTT 28.6 (24.5-39.1) SECONDS Sodium 131 L (136-145) mmol/L Potassium 3.7 (3.4-4.5) mmol/L Chloride 99 (98-107) mmol/L Carbon Dioxide 23.0 (22-29) mmol/L Anion Gap 9.0 (7-16) BUN 13 (8-23) mg/dL Creatinine 0.6 (0.5-0.9) mg/dL Estimated GFR > 60 mL/min Random Glucose 149 H (74-109) mg/dL Calcium 8.1 L (8.8-10.2) mg/dL Total Bilirubin 1.50 H (0.2-1.0) mg/dL Total Protein 10.2 H (6.6-8.7) g/dL Disposition Disposition: Discharge Clinical Impression: Epistaxis, recurrent Disposition: Home, Self-Care Condition: (1) Good Instructions: Nosebleed (ED) Additional Instructions: sleep elevated. leave packing in for 3 days. follow up with ENT on Thursday, return sooner if worse. avoid sneezing. if nose starts bleedin put direct pressure on nostrils for 20 minutes. Prescriptions: Hydrocodone/Acetaminophen [Erie 5-325 Tablet] 1 each PO Q6HR #9 tablet Amoxicillin/Potassium Clav [Augmentin 875Mg/125Mg] 1 each PO BID #14 tablet Forms: Patient Portal Access Quality - Quality Measures Quality Measures: N/A - Blood Pressure Screening Does Patient Have Any of the Following: No Blood Pressure Classification: Pre-Hypertensive BP Reading Systolic Measurement: 180 Diastolic Measurement: 81 Screening for High Blood Pressure: < Pre-Hypertensive BP, F/U Documented > [ G8950] Pre-Hypertensive Follow-up Interventions: Follow-up with rescreen every year.
[2018-04-10] MEDS ORDERED: ONDANSETRON HCL IV 4 MG/2 ML VIAL IVP ONE (19:52)
[2018-04-10] MEDS ORDERED: AMOXICILLIN/POTASSIUM CLAV 875MG/125MG TABLET PO ONE (21:23)
== END 2018-04-10 22:01 | disposition home or self-care (01) ==
LOC: ER 18:51
DX: R04.0 Epistaxis (principal); I10 Essential (primary) hypertension
CPT/HCPCS: 30901 ×2; 99284 ×2; 96376; 96374; 96375; 85025; 85730; 85610; 80053; J2405; J2270

== ENCOUNTER 2018-06-25 15:01 | Emergency (ER) | payer MEDICARE, BC ==
[2018-06-25 15:40] LABS: BASO % 0.4 % (0-6); EOS % 2.1 % (0-6); GRAN % 52.7 % (47-80); HEMATOCRIT 34.6 % (35.0-47.0); MEAN CELL VOLUME 93.5 fl (81-97); MEAN CORPUSCULAR HEMOGLOBIN 29.7 pg (27-33); MEAN CORPUSCULAR HGB CONC 31.8 g/dl (32-36); MEAN PLATELET VOLUME 9.7 fl (7.4-10.4); MONO % 12.8 % (0-9); PLATELET COUNT 147 K/uL (130-400); RED CELL DISTRIBUTION WIDTH 13.6 % (11.5-14.5); WHITE BLOOD COUNT W/O DIFF 4.8 K/uL (4.2-12.2)
[2018-06-25 15:54] LABS: BLOOD UREA NITROGEN 13 mg/dL (8-23); CREATININE 0.6 mg/dL (0.5-0.9); EST GLOMERULAR FILTRATION RATE > 60 mL/min
[2018-06-25 15:55] LABS: TOTAL PROTEIN 9.2 g/dL (6.6-8.7)
[2018-06-25 15:57] LABS: GLUCOSE,RANDOM 117 mg/dL (74-109)
[2018-06-25 15:59] LABS: ALB/GLOB RATIO 0.5 (1.1-1.8); ALBUMIN 2.9 g/dL (4.0-5.0); ALKALINE PHOSPHATASE 88 U/L (35-104); ALT/SGPT 48 U/L (<33); AST/SGOT 72 U/L (10.0-35.0)
[2018-06-25 16:02] LABS: CKMB 1.3 ng/mL (<3.77)
[2018-06-25 16:03] LABS: NTpro B-NATRIURETIC PEPTIDE 86.49 pg/mL (<125)
[2018-06-25 16:10] LABS: THYROID STIMULATING HORMONE 2.18 uIU/mL (0.270-4.20)
[2018-06-25] MEDS ORDERED: ASPIRIN 81 MG CHEWABLE TABLET PO ONE ×2 (16:54→17:00)
--- NOTE | 2018-06-25 16:56 | Emergency Department Record ---
History of Present Illness - General Chief Complaint: Chest Pain Stated Complaint: CHEST PAIN Time Seen by Provider: 06/25/18 15:17 Source: Patient Mode of Arrival: Ambulatory Limitations: No limitations - History of Present Illness Initial Comments: pt has been having spells the last 2 days where she feels palpitations and lightheadedness when she stands up. these spells have been increasing. she has had no cp but feels a discomfort. she denies caffeine and cold meds. Complaint: Other Onset/Timin -: Days(s) Onset: During exertion Severity: Moderate Severity scale (1-10): 1 Quality: Aching, Heaviness Improves With: Remaining still Worsens With: Movement Anginal Symptoms: Dyspnea Other Symptoms: Palpitations - Related Data Home Medications Medication Instructions Recorded Confirmed Last Taken Amlodipine Besylate [Norvasc] 10 mg PO DAILY 06/25/18 06/25/18 1 Day Ago ~06/24/18 Furosemide [Lasix] 40 mg PO DAILY 06/25/18 06/25/18 1 Day Ago ~06/24/18 Omeprazole 20 mg PO BID 06/25/18 06/25/18 1 Day Ago ~06/24/18 Spironolactone 50 mg PO BID 06/25/18 06/25/18 1 Day Ago ~06/24/18 Allergies Allergy/AdvReac Type Severity Reaction Status Date / Time hydromorphone Allergy Unknown RAPID Verified 06/25/18 15:12 HEART RATE levofloxacin Allergy Unknown HIVES Verified 06/25/18 15:12 Sulfa (Sulfonamide Allergy Unknown RAPID Verified 06/25/18 15:12 Antibiotics) HEART RATE Iodinated Contrast- Oral and Allergy RASH Verified 06/25/18 15:12 IV Dye [Iodinated Contrast Media - Oral and] iodine Allergy RASH Verified 06/25/18 15:12 Travel Screening - Travel/Exposure Within Last 30 Days Have you traveled within the last 30 days?: No - Travel/Exposure Within Last Year Have you traveled outside the [place] in the last year?: No - Additonal Travel Details Have you been exposed to anyone with a communicable illness?: No - Travel Symptoms Symptom Screening: None Review of Systems Reviewed: No additional complaints except as noted below Constitutional: Reports: As per HPI. Denies: Chills, Fever, Malaise, Night sweats, Weakness, Weight change Eyes: Reports: As per HPI. Denies: Eye discharge, Eye pain, Photophobia, Vision change ENT: Reports: As per HPI. Denies: Congestion, Dental pain, Ear pain, Epistaxis , Hearing loss, Throat pain Respiratory: Reports: As per HPI. Denies: Cough, Dyspnea, Hemoptysis, Stridor, Wheezes Cardiovascular: Reports: As per HPI. Denies: Arrhythmia, Chest pain, Dyspnea on exertion, Edema, Murmurs, Orthopnea, Palpitations, Paroxysmal nocturnal dyspnea, Rheumatic Fever, Syncope Endocrine: Reports: As per HPI. Denies: Fatigue, Heat or cold intolerance, Polydipsia, Polyuria Gastrointestinal: Reports: As per HPI. Denies: Abdominal pain, Constipation, Diarrhea, Hematemesis, Hematochezia, Melena, Nausea, Vomiting Genitourinary: Reports: As per HPI. Denies: Abnormal menses, Discharge, Dyspareunia, Dysuria, Frequency, Hematuria, Incontinence, Retention, Urgency Musculoskeletal: Reports: As per HPI. Denies: Arthralgia, Back pain, Gout, Joint swelling, Myalgia, Neck pain Skin: Reports: As per HPI. Denies: Bruising, Change in color, Change in hair/ nails, Lesions, Pruritus, Rash Neurological: Reports: As per HPI. Denies: Abnormal gait, Confusion, Headache, Numbness, Paresthesias, Seizure, Tingling, Tremors, Vertigo, Weakness Psychiatric: Reports: As per HPI. Denies: Anxiety, Auditory hallucinations, Depression, Homicidal thoughts, Suicidal thoughts, Visual hallucinations Hematological/Lymphatic: Reports: As per HPI. Denies: Anemia, Blood Clots, Easy bleeding, Easy bruising, Swollen glands Past Medical History - SOCIAL HISTORY Smoking Status: Never smoker Alcohol Use: None Drug Use: None - RESPIRATORY Hx Respiratory Disorders: Yes Hx Asthma: Yes Hx Bronchitis: Yes - CARDIOVASCULAR Hx Cardio Disorders: Yes Hx Hypertension: Yes Hx Irregular Heartbeat: Yes (A-fib) - NEURO Hx Neuro Disorders: Yes Hx Headaches: Yes (migraines) - GI Hx GI Disorders: Yes Hx Celiac Disease: Yes Hx Reflux: Yes Hx Hepatitis/Jaundice: Yes (newly being worked up) Hx Hiatal Hernia: Yes (scope in June) - Hx Genitourinary Disorders: Yes Hx Kidney Stones: Yes - ENDOCRINE Hx Endocrine Disorders: No - MUSCULOSKELETAL Hx Musculoskeletal Disorders: Yes Hx Arthritis: Yes (rheumatoid) Hx Gout: Yes Comment:: Polymyalgia Rheumatica - PSYCH Hx Psych Problems: No - HEMATOLOGY/ONCOLOGY Hx Hematology/Oncology Disorders: No Family Medical History Any Significant Family History?: Yes Hx Alcohol Use: Father Hx Cancer: Father Hx Dementia: Mother Hx Heart Disease: Mother, Brother/Sister Hx HTN: Brother/Sister Hx Stroke: Mother Physical Exam - General General Appearance: Alert, Oriented x3, Cooperative, No acute distress - Head Head exam: Normal inspection - Eye Eye exam: Normal appearance, PERRL, EOMI Pupils: Normal accommodation - ENT ENT exam: Normal exam, Mucous membranes moist, Normal external ear exam, Normal orophraynx Ear exam: Normal external inspection. negative: External canal tenderness Nasal Exam: Normal inspection. negative: Discharge, Sinus tenderness Mouth exam: Normal external inspection, Tongue normal Teeth exam: Normal inspection. negative: Dental caries Throat exam: Normal inspection. negative: Tonsillar erythema, Tonsillar exudate - Neck Neck exam: Normal inspection, Full ROM. negative: Tenderness - Respiratory Respiratory exam: Normal lung sounds bilaterally. negative: Respiratory distress - Cardiovascular Cardiovascular Exam: Regular rate, Normal rhythm, Normal heart sounds - GI/Abdominal GI/Abdominal exam: Soft, Normal bowel sounds. negative: Tenderness - Rectal Rectal exam: Deferred - exam: Deferred - Extremities Extremities exam: Normal inspection, Full ROM, Normal capillary refill. negative: Tenderness - Back Back exam: Reports: Normal inspection, Full ROM. Denies: Muscle spasm, Rash noted, Tenderness - Neurological Neurological exam: Alert, CN II-XII intact, Normal gait, Oriented X3 - Psychiatric Psychiatric exam: Normal affect, Normal mood - Skin Skin exam: Dry, Intact, Normal color, Warm Course Vital Signs 06/25/18 06/25/18 06/25/18 15:04 15:12 16:08 Temperature 98.0 F Pulse Rate 84 Pulse Rate [ 79 Bilateral] Respiratory 18 20 Rate Blood Pressure 136/83 Blood Pressure 152/58 [Right Arm] Pulse Ox 100 98 - Reevaluation(s) Reevaluation #1: 06/25/18 16:55 pt Medical Decision Making - Lab Data Result diagrams: 06/25/18 15:34 06/25/18 15:34 Lab Results 06/25/18 06/25/18 06/25/18 Range/Units 15:34 15:34 15:34 WBC 4.8 (4.2-12.2) K/uL RBC 3.70 L (3.80-5.40) M/uL Hgb 11.0 L (11.6-16.0) gm/dl Hct 34.6 L (35.0-47.0) % MCV 93.5 (81-97) fl MCH 29.7 (27-33) pg MCHC 31.8 L (32-36) g/dl RDW 13.6 (11.5-14.5) % Plt Count 147 (130-400) K/uL MPV 9.7 (7.4-10.4) fl Gran % 52.7 (47-80) % Lymphocytes % 32.0 (16-45) % Monocytes % 12.8 H (0-9) % Eosinophils % 2.1 (0-6) % Basophils % 0.4 (0-6) % D-Dimer 1.10 H (0-0.59) mg/L FEU Sodium 135 L (136-145) mmol/L Potassium 3.5 (3.4-4.5) mmol/L Chloride 102 (98-107) mmol/L Carbon Dioxide 24.0 (22-29) mmol/L Anion Gap 9.0 (7-16) BUN 13 (8-23) mg/dL Creatinine 0.6 (0.5-0.9) mg/dL Estimated GFR > 60 mL/min Random Glucose 117 H (74-109) mg/dL Calcium 8.6 L (8.8-10.2) mg/dL Total Bilirubin 1.40 H (0.2-1.0) mg/dL AST 72 H (10.0-35.0) U/L ALT 48 H (<33) U/L Alkaline Phosphatase 88 (35-104) U/L CK-MB (CK-2) 1.3 (<3.77) ng/mL Troponin T < 0.010 (0-0.010) ng/mL NT-Pro-B Natriuret Pep 86.49 (<125) pg/mL Total Protein 9.2 H (6.6-8.7) g/dL Albumin 2.9 L (4.0-5.0) g/dL Globulin 6.3 H (1.4-4.8) gm/dL Albumin/Globulin Ratio 0.5 L (1.1-1.8) TSH 2.18 (0.270-4.20) uIU/mL Disposition Disposition: Transfer Clinical Impression: Palpitations Disposition: Acute Care Hospital Transfer Transfer To: [facility] Reason For Transfer: needs vq Accepting Physician: dr [email or web address] Time Discussed w/Accepting Physician: 16:56 Quality - Quality Measures Quality Measures: N/A - Blood Pressure Screening Does Patient Have Any of the Following: No Blood Pressure Classification: Pre-Hypertensive BP Reading Systolic Measurement: 136 Diastolic Measurement: 83 Screening for High Blood Pressure: < Pre-Hypertensive BP, F/U Documented > [ G8950] Pre-Hypertensive Follow-up Interventions: Follow-up with rescreen every year.
--- NOTE | 2018-07-01 20:13 | Holter Monitor Report ---
DATE OF TEST: 06/25/2018 INTERPRETING PHYSICIAN: Jasiel Fu M.D. Ms. Coyle is 63 years old, wearing a 48-hour Holter monitor on 06/25/2018 for palpitations. A total of 239,482 heart beats were recorded. The average heart rate was 83 beats per minute in sinus rhythm. The minimum heart rate was 64 beats per minute and the maximum was 120 beats per minute. There were a total 6 PVCs and no ventricular arrhythmias. There were a total of 571 PACs and no atrial arrhythmias. There were multiple journal entries of fluttering in the chest that corresponded with sinus rhythm. FINAL IMPRESSION: 1. NORMAL 48-HOUR HOLTER MONITOR. 2. MULTIPLE JOURNAL ENTRIES OF FLUTTERING IN CHEST THAT ALL CORRESPONDED WITH SINUS RHYTHM. cc: Dr. Marianna Villavicencio JOB NUMBER: [id number] MTDD
== END 2018-06-25 17:17 | disposition short-term general hospital (02) ==
LOC: ER 15:01
DX: R00.2 Palpitations (principal); R07.89 Other chest pain; R42 Dizziness and giddiness; R06.00 Dyspnea, unspecified; I10 Essential (primary) hypertension; I48.91 Unspecified atrial fibrillation
CPT/HCPCS: 80053; 82553; 83880; 84443; 84484; 85025; 85379; 93005; 93010; 93225; 93226; 99285

== ENCOUNTER 2018-07-16 15:27 | Emergency (ER) | payer MEDICARE, OTHER ==
--- NOTE | 2018-07-16 15:59 | Emergency Department Record ---
History of Present Illness - General Chief Complaint: Cough Stated Complaint: COUGH/SOB Time Seen by Provider: 07/16/18 15:52 Source: Patient Mode of Arrival: Ambulatory Limitations: No limitations - History of Present Illness Initial Comments: The patient is here due to a 3 day hx of cough, congestion, and SOB when coughing. She now has chest aching ONLY when coughing. There is no sputum production, ST, or sweating but she has had a mild CARRASCO and body aches. The patient states she did have a fever yesterday subjectively. MD Complaint: Cough, Fever Onset/Timin -: Days(s) - Related Data Previous Rx's Medication Instructions Recorded Albuterol Sulfate [Proair Hfa] 2 puff IH QID PRN #1 inhaler 07/16/18 Benzonatate [Tessalon] 1 cap PO Q8H PRN #15 cap 07/16/18 Prednisone [Prednisone 20Mg] 40 mg PO DAILY #10 tab 07/16/18 Allergies Allergy/AdvReac Type Severity Reaction Status Date / Time levofloxacin Allergy Unknown HIVES Verified 07/16/18 15:47 Iodinated Contrast- Oral and Allergy RASH Verified 07/16/18 15:47 IV Dye [Iodinated Contrast Media - Oral and] iodine Allergy RASH Verified 07/16/18 15:47 hydromorphone AdvReac Unknown RAPID Verified 07/16/18 15:47 HEART RATE Sulfa (Sulfonamide AdvReac Unknown RAPID Verified 07/16/18 15:47 Antibiotics) HEART RATE Travel Screening - Travel/Exposure Within Last 30 Days Have you traveled within the last 30 days?: No Review of Systems Constitutional: Reports: Chills, Fever, Malaise Eyes: Denies: Eye discharge ENT: Reports: Congestion Respiratory: Reports: Cough. Denies: Dyspnea Cardiovascular: Denies: Arrhythmia, Chest pain Endocrine: Reports: Fatigue Gastrointestinal: Denies: Vomiting Genitourinary: Denies: Dysuria Musculoskeletal: Denies: Arthralgia Past Medical History - SOCIAL HISTORY Smoking Status: Never smoker Alcohol Use: None Drug Use: None - RESPIRATORY Hx Respiratory Disorders: Yes Hx Asthma: Yes Hx Bronchitis: Yes - CARDIOVASCULAR Hx Cardio Disorders: Yes Hx Edema: Yes Hx Hypertension: Yes Hx Irregular Heartbeat: Yes (A-fib) - NEURO Hx Neuro Disorders: Yes Hx Headaches: Yes (migraines) - GI Hx GI Disorders: Yes Hx Celiac Disease: Yes Hx Reflux: Yes Hx Hepatitis/Jaundice: Yes (newly being worked up) Hx Hiatal Hernia: Yes - Hx Genitourinary Disorders: Yes Hx Kidney Stones: Yes - ENDOCRINE Hx Endocrine Disorders: No - MUSCULOSKELETAL Hx Musculoskeletal Disorders: Yes Hx Arthritis: Yes (rheumatoid) Hx Gout: Yes Comment:: Polymyalgia Rheumatica - PSYCH Hx Psych Problems: No - HEMATOLOGY/ONCOLOGY Hx Hematology/Oncology Disorders: No Family Medical History Any Significant Family History?: Yes Hx Alcohol Use: Father Hx Cancer: Father Hx Dementia: Mother Hx Heart Disease: Mother, Brother/Sister Hx HTN: Brother/Sister Hx Stroke: Mother Physical Exam - General General Appearance: Alert, Oriented x3, Cooperative, No acute distress - Head Head exam: Atraumatic, Normocephalic, Normal inspection - Eye Eye exam: Normal appearance, PERRL, EOMI - ENT Throat exam: Normal inspection. negative: Tonsillar erythema, Tonsillar exudate - Neck Neck exam: Normal inspection, Full ROM. negative: Tenderness - Respiratory Respiratory exam: Normal lung sounds bilaterally. negative: Respiratory distress - Cardiovascular Cardiovascular Exam: Regular rate, Normal rhythm, Normal heart sounds - GI/Abdominal GI/Abdominal exam: Soft, Normal bowel sounds. negative: Tenderness - Extremities Extremities exam: Normal inspection, Full ROM, Normal capillary refill. negative: Tenderness - Neurological Neurological exam: Alert. negative: Motor sensory deficit Course Vital Signs 07/16/18 15:42 Temperature 98.1 F Pulse Rate 86 Respiratory 20 Rate Blood Pressure 141/69 Pulse Ox 100 - Reevaluation(s) Reevaluation #1: The patient is resting comfortably but is again complaining of chest aching with coughing. Due to that fact we will order an EKG and lab work to be sure there is no cardiac ischemia present. The patient did present here to [facility] almost 3 weeks ago due to SOB and CP and did have a neg VQ scan at that time. She also appears to have a chronically elevated D-dimer and has had 2 neg VQ scans in 2017 also. 07/16/18 16:30 Reevaluation #2: The patient is doing very well at this time. She presently denies any pain or discomfort and is resting comfortably. She is intermittently coughing and I did discuss the fact that I believe the patient has a viral URI. We will place her on anti cough medicines and have her see her PCP next week if not better. 07/16/18 17:50 Medical Decision Making - Data Complexity MDM Data: Labs Ordered and/or Reviewed, X-Ray Ordered and/or Reviewed, EKG Ordered and/or Reviewed - Lab Data Result diagrams: 07/16/18 Unknown 07/16/18 Unknown - EKG Data -: EKG Interpreted by Me EKG: No Acute Changes, Unchanged From Previous - Radiology Data Radiology results: Report reviewed (CXR: Neg.) Disposition Disposition: Discharge Clinical Impression: URI, acute Disposition: Home, Self-Care Condition: (2) Stable Instructions: Cold Symptoms (ED) Additional Instructions: Please take the Inhaller with the short course of Prednisone and Tessalon. Please see your family doctor if not better in 3 days. Return to the ER for any worsening symptoms. Prescriptions: Albuterol Sulfate [Proair Hfa] 2 puff IH QID PRN #1 inhaler PRN Reason: Cough And Difficulty Breathing Benzonatate [Tessalon] 1 cap PO Q8H PRN #15 cap PRN Reason: Cough Prednisone [Prednisone 20Mg] 40 mg PO DAILY #10 tab Forms: Patient Portal Access Time of Disposition: 17:53 Quality - Quality Measures Quality Measures: Headache (All Ages) - Headache: Neuroimaging Quality Measure: Measure #419: Overuse of Neuroimaging ICD10 Codes Entered: Yes View Detail: Yes Neurological Exam: Patient had a normal neurological exam. [G9535] Headache: Use of Neuroimaging: < CTA, CT, MRA or MRI was NOT ordered > [G9534] - Blood Pressure Screening View Details: Yes Does Patient Have Any of the Following: No Blood Pressure Classification: Hypertensive Reading Systolic Measurement: 141 Diastolic Measurement: 69 Screening for High Blood Pressure: < First Hypertensive BP, F/U Documented > [ G8950] First Hypertensive Follow-up Interventions: Referral to alternative/primary care provider.
[2018-07-16 16:56] LABS: EOS % 3.3 % (0-6); GRAN % 47.2 % (47-80); HEMATOCRIT 33.1 % (35.0-47.0); HEMOGLOBIN 10.5 gm/dl (11.6-16.0); LYMPH % 34.6 % (16-45); MEAN CELL VOLUME 93.2 fl (81-97); MEAN CORPUSCULAR HEMOGLOBIN 29.5 pg (27-33); MEAN CORPUSCULAR HGB CONC 31.7 g/dl (32-36); MEAN PLATELET VOLUME 9.2 fl (7.4-10.4); MONO % 13.9 % (0-9); PLATELET COUNT 151 K/uL (130-400); RED BLOOD COUNT 3.55 M/uL (3.80-5.40)
[2018-07-16 17:09] LABS: BLOOD UREA NITROGEN 16 mg/dL (8-23); CREATININE 0.5 mg/dL (0.5-0.9); EST GLOMERULAR FILTRATION RATE > 60 mL/min; TOTAL PROTEIN 8.9 g/dL (6.6-8.7)
[2018-07-16 17:11] LABS: GLUCOSE,RANDOM 87 mg/dL (74-109)
[2018-07-16 17:14] LABS: ALB/GLOB RATIO 0.5 (1.1-1.8); ALBUMIN 2.8 g/dL (4.0-5.0); ALKALINE PHOSPHATASE 95 U/L (45-87); ALT/SGPT 32 U/L (<33); AST/SGOT 57 U/L (10.0-35.0)
--- NOTE | 2018-07-17 18:50 | RADIOLOGY REPORT ---
EXAM: CHEST 2 VIEWS HISTORY: COUGH X2 DAYS. TECHNIQUE: AP and lateral views of the chest were obtained. FINDINGS: The heart and pulmonary vessels are normal. No infiltrate or effusion is seen. The lungs are clear. IMPRESSION: NEGATIVE. JOB NUMBER: [id number] MTDD
== END 2018-07-16 18:04 | disposition home or self-care (01) ==
LOC: ER 15:27
DX: J06.9 Acute upper respiratory infection, unspecified (principal); R07.9 Chest pain, unspecified; R05 Cough; R06.02 Shortness of breath; I10 Essential (primary) hypertension; I48.91 Unspecified atrial fibrillation
CPT/HCPCS: 71046; 80053; 84484; 85025; 93005; 93010; 99284